=== PATIENT | female | born 1940 | race Caucasian/White ===

== ENCOUNTER 2017-10-22 10:49 | Emergency (ER) | payer MEDICARE, OTHER, SELFPAY ==
[2017-10-22 10:56] VITALS: BP 160/62; PULSE 69; RESP 15; TEMP 36.9; O2SAT 97; BMI 20.2
--- NOTE | 2017-10-22 11:26 | ED.ANXIETY ---
HPI - Anxiety General Chief Complaint: Anxiety Stated Complaint: States possible blood clot, hardened vein Time Seen by Provider: 10/22/17 11:25 Source: patient Mode of arrival: ambulatory Limitations: no limitations History of Present Illness HPI narrative: Patient presents to the emergency department with a chief complaint of a firm, hard, painful bump on her right anterior chest that she is convinced is a blood clot. She denies any chest pain, shortness of breath nor dizziness or lightheadedness. She denies near syncope. She denies recent travel or history of clots. She states that was not there yesterday. She denies any injury MD complaint: anxiety Onset (ago): day(s) Severity: mild Related Data Home Medications Medication Instructions Recorded Confirmed tramadol 50 mg PO Q6HP PRN 10/22/17 10/22/17 Previous Rx's Medication Instructions Recorded amitriptyline 50 mg PO Q DAY #90 tab 02/16/17 atenolol 50 mg PO QDAY #90 tab 02/16/17 atorvastatin [Lipitor] 40 mg PO HS #90 tab 02/16/17 Allergies Allergy/AdvReac Type Severity Reaction Status Date / Time alendronate sodium Allergy Unknown GI upset Verified 10/22/17 10:56 [From FOSAMAX] metoprolol [METOPROLOL] Allergy Unknown Verified 10/22/17 10:56 propranolol [PROPRANOLOL] Allergy Unknown Verified 10/22/17 10:56 Review of Systems Review of Systems All systems reviewed & are unremarkable except as noted in HPI and below Constitutional Denies chills, Denies fever(s), Denies lethargy and Denies weakness ENT Ears, Nose, Mouth, and Throat: Denies change in voice, Denies neck pain and Denies sore throat Cardiovascular Denies dyspnea and Denies dyspnea on exertion Respiratory Denies cough, Denies dyspnea, Denies dyspnea on exertion and Denies wheezing Gastrointestinal Gastrointestinal: Denies abdominal pain, Denies change in bowel habits, Denies diarrhea, Denies nausea and Denies vomiting Genitourinary Denies hematuria, Denies flank pain, Denies urinary incontinence and Denies urinary urgency Musculoskeletal Denies neck pain Integumentary/Breasts Reports new lesions and Reports skin pain Neurologic Denies weakness Allergic/Immunologic Denies wheezing PFSH Social History Smoking Status: Never smoker Exam Const General: cooperative and well developed Nutritional Appearance: well nourished Orientation: alert, awake, oriented x3 and not confused Chest Other: very small firm ropelike lesion on anterior chest overlying clavicle. No erythema or warmth, no abscess or cellulitis. Perhaps early thrombophlebitis Resp Effort & Inspection: normal respiratory effort, able to speak in complete sentences, no respiratory distress and no use of accessory muscles Auscultation: clear to auscultation bilaterally, no rales, no rhonchi and no wheezes Cardio Rate: regular rate Rhythm: regular rhythm Heart Sounds: no click, no gallops, no murmurs and no rubs Pulses: normal peripheral pulses GI Inspection: non-distended Palpation: soft, no hepatosplenomegaly, No guarding, No pulsatile mass and No tender Auscultation: normal bowel sounds Skin General: no rashes or lesions noted, No jaundice and No petechiae Course Last Vital Signs Temp 98.5 F 10/22/17 10:56 Pulse 69 10/22/17 10:56 Resp 16 10/22/17 11:50 BP 141/61 H 10/22/17 11:50 Pulse Ox 97 10/22/17 11:50 Discharge Plan Departure Patient Disposition: Home, Self-Care Clinical Impression: Thrombophlebitis Discharge Date/Time: 10/22/17 11:52 Interventions: ED Discharge Assessment Last Done: 10/22/17 11:51 Instructions: DI for Superficial Thrombophlebitis Activity Restrictions/Additional Instructions: apply a warm compress to your chest over the weekend Call Dr. Hunter's office on Tuesday morning for follow up next week, make sure they know you were in the ER today Return if worse Prescriptions: No Action atorvastatin [Lipitor] 40 MG tablet 40 mg PO HS Qty: 90 RF: 3 amitriptyline 50 MG tablet 50 mg PO Q DAY Qty: 90 RF: 3 atenolol 50 MG tablet 50 mg PO QDAY Qty: 90 RF: 3 tramadol 50 MG tablet 50 mg PO Q6HP PRN (Reason: Pain (Scale Score 7-10)) RF: 0 Referrals: Vasiliy Hunter MD [Primary Care Provider] -
[2017-10-22 11:50] VITALS: BP 141/61; RESP 16; O2SAT 97
== END 2017-10-22 11:52 | disposition home or self-care (01) ==
PROVIDERS: Emergency Provider Emergency Medicine; Family Provider Family Medicine; PCP Family Medicine
DX: I80.9 Phlebitis and thrombophlebitis of unspecified site (principal)
CPT/HCPCS: 99282

== ENCOUNTER → 2018-02-14 10:42 | Outpatient (CLI) | payer MEDICARE, OTHER, SELFPAY ==
[2018-02-14 11:48] LABS: Alanine Aminotransferase 27 IU/L (9-52); Albumin 4.2 g/dL (3.5-5.0); Albumin Globulin Ratio 1.4 (1.0-2.8); Alkaline Phosphatase 68 U/L (38-126); Aspartate Aminotransferase 30 IU/L (14-36); BUN Creatinine Ratio 21.4 (6-22); Bilirubin Total 0.5 mg/dL (0.2-1.3); Blood Urea Nitrogen 15 mg/dL (7-17); Calcium 9.5 mg/dL (8.4-10.2); Carbon Dioxide 34 mmol/L (22-32); Chloride 101 mmol/L (98-107); Cholesterol 246 mg/dL (140-199); Estimated Glomerular Filt Rate > 60.0 mL/min (>60); Globulin 2.9 g/dL (1.7-4.1); Glucose 98 mg/dL (80-110); HDL Cholesterol 39 mg/dL (40-60); HEMOLYSIS < 15 (0-50); LDL Cholesterol Calculated 164 mg/dL (<100); Potassium 4.5 mmol/L (3.4-5.1); Sodium 144 mmol/L (137-145); Total Protein 7.1 g/dL (6.3-8.2); Triglycerides 214 mg/dL (35-150)
== END ==
PROVIDERS: Family Provider Family Medicine; PCP Family Medicine; Visit Provider Family Medicine
DX: E78.00 Pure hypercholesterolemia, unspecified (principal)
CPT/HCPCS: 36415; 80053; 80061

== ENCOUNTER 2018-07-28 16:23 | Emergency (ER) | payer MEDICARE, OTHER, SELFPAY ==
[2018-07-28 16:44] VITALS: BP 182/61; PULSE 77; RESP 18; TEMP 36.4; O2SAT 99; BMI 20.5
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
--- NOTE | 2018-07-28 17:15 | PC.NURSE ---
pt c/o increasing high bp. otherwise pt denies symptoms.
== END 2018-07-28 17:17 | disposition home or self-care (01) ==
PROVIDERS: Emergency Provider Internal Medicine; PCP Student in an Organized Health Care Education/Training Program
DX: I10 Essential (primary) hypertension (principal)
CPT/HCPCS: 99282

== ENCOUNTER → 2019-01-02 08:13 | Outpatient (CLI) | payer MEDICARE, OTHER, SELFPAY ==
[2019-01-02 09:12] LABS: Hematocrit 39.2 % (36-46); Hemoglobin 13.3 g/dL (12.0-16.0); Mean Corpuscular HGB Conc 33.9 % (30-36); Mean Corpuscular Hemoglobin 29.1 PG (26-34); Platelet Count 348 X10^3/uL (150-400); Red Blood Cell Count 4.56 X10^6/uL (4.0-5.2); Red Cell Distribution Width 12.7 % (11.6-14.8)
[2019-01-02 09:31] LABS: BUN Creatinine Ratio 18.6 (6-22); Blood Urea Nitrogen 13 mg/dL (7-17); Calcium 9.6 mg/dL (8.4-10.2); Carbon Dioxide 31 mmol/L (22-32); Chloride 102 mmol/L (98-107); Estimated Glomerular Filt Rate > 60.0 mL/min (>60); Glucose 106 mg/dL (80-110); HEMOLYSIS < 15 (0-50); Potassium 4.1 mmol/L (3.4-5.1); Sodium 141 mmol/L (137-145)
== END ==
PROVIDERS: PCP Student in an Organized Health Care Education/Training Program; Visit Provider Student in an Organized Health Care Education/Training Program
DX: I10 Essential (primary) hypertension (principal); R63.4 Abnormal weight loss
CPT/HCPCS: 36415; 80048; 85027

== ENCOUNTER → 2019-01-11 07:27 | Outpatient (CLI) | payer MEDICARE, OTHER, SELFPAY ==
[2019-01-11 08:46] LABS: Cholesterol 186 mg/dL (140-199); HDL Cholesterol 38 mg/dL (40-60); LDL Cholesterol Calculated 91 mg/dL (<100); Triglycerides 283 mg/dL (35-150)
== END ==
PROVIDERS: PCP Student in an Organized Health Care Education/Training Program; Visit Provider Student in an Organized Health Care Education/Training Program
DX: E78.00 Pure hypercholesterolemia, unspecified (principal)
CPT/HCPCS: 36415; 80061

== ENCOUNTER → 2019-12-12 13:40 | Outpatient (CLI) | payer MEDICARE, OTHER, SELFPAY ==
[2019-12-12 14:44] LABS: BUN Creatinine Ratio 20.3 (6-22); Blood Urea Nitrogen 14 mg/dL (7-17); Carbon Dioxide 30 mmol/L (22-32); Chloride 103 mmol/L (98-107); Estimated Glomerular Filt Rate > 60.0 mL/min (>60); Glucose 85 mg/dL (80-110); HEMOLYSIS < 15 (0-50); Potassium 4.5 mmol/L (3.4-5.1); Sodium 139 mmol/L (137-145)
== END ==
PROVIDERS: PCP Student in an Organized Health Care Education/Training Program; Referring Provider Student in an Organized Health Care Education/Training Program; Visit Provider Student in an Organized Health Care Education/Training Program
DX: I10 Essential (primary) hypertension (principal)
CPT/HCPCS: 36415; 80048

== ENCOUNTER → 2019-12-18 13:50 | Outpatient (CLI) | payer MEDICARE, OTHER, SELFPAY ==
[2019-12-19 20:35] LABS: COVID19 Sendout Not Detected (Not Detect)
== END ==
PROVIDERS: PCP Student in an Organized Health Care Education/Training Program; Visit Provider Physician Assistant
DX: Z01.812 Encounter for preprocedural laboratory examination (principal)
CPT/HCPCS: 87635

== ENCOUNTER → 2019-12-18 14:28 | Outpatient (CLI) | payer MEDICARE, OTHER, SELFPAY | PROVIDERS: PCP Student in an Organized Health Care Education/Training Program; Referring Provider Student in an Organized Health Care Education/Training Program; Visit Provider Student in an Organized Health Care Education/Training Program | DX: M81.0 Age-related osteoporosis without current pathological fracture (principal); Z78.0 Asymptomatic menopausal state; Z87.891 Personal history of nicotine dependence | CPT/HCPCS: 77080 ==

== ENCOUNTER 2019-12-21 09:35 | Day surgery (SDC) | payer MEDICARE, OTHER, SELFPAY ==
[2019-12-18 11:36] VITALS: BMI 19.5
[2019-12-21] VITALS (9 sets, daily range): BP systolic 137–164; BP diastolic 59–73; PULSE 58–69; RESP 11–16; TEMP 36.4–36.7; O2SAT 97–99; BMI 19.5
--- NOTE | 2019-12-21 10:09 | PM.PREOP ---
Pre-operative Note COVID-19 COVID-19 status: Negative Result date/Date tested (Pos, Neg/Pending): 12/18/19 Interval Note History & Physical reviewed/Exam performed by Physician: Yes Changes to H&P: No
[2019-12-21] MEDS: LACTATED RINGERS 1,000 ML 42 ML IV (10:16)
[2019-12-21] MEDS: HYDROCODONE/ACET 5/325 TABLET 1 TAB PO ×2 (10:34→13:05)
[2019-12-21] MEDS: CEFAZOLIN 2 GM/100 ML FROZ.PIGGY IV (11:30)
--- NOTE | 2019-12-21 11:54 | SUR.OPER ---
Supine on padded OR bed, head on pillow, arms secured on padded arm boards at <90 degrees abduction, legs uncrossed, safety belt at thigh, tape over blanket over lower legs.
[2019-12-21] MEDS: BUPIVACAINE 0.25% W/ EPI 30 ML VIAL INJ (12:02)
--- NOTE | 2019-12-21 12:55 | SUR.PHASEI ---
Report given to Whit
[2019-12-21] MEDS: fentaNYL 100 MCG/2 ML INJ IV (13:03)
--- NOTE | 2019-12-21 13:34 | SUR.PHASEII ---
Assumed care from ITZ Sherman. Pt wanting to go home dressing to R lower foot remains c/d/i.
--- NOTE | 2019-12-21 13:50 | P.OP_ITS ---
Operative Date/Time/Diagnoses Date of procedure: 12/21/19 Time of procedure: 11:00 Pre-op diagnosis: Right 2nd hammertoe, right great toenail deformity Post-op diagnosis: same Procedure & Clinicians Procedure: 1. Correction hammertoe right CPT code 37742-L9 2. 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 She has failed conservative treatment and has persistent pain and dysfunction from her rigid hammertoe and pain from her toe rim minute. She did have a previous condyle resection and great toenail removal with other providers. She is very active an d likes to walk up to 12 miles a week and this has limited her shoe choices and discuss continued pain. The risks and benefits of the procedure have been discussed with the patient even opportunity to ask questions. The risks of surgery include but are not limited to infection, malunion, nonunion, persistence of pain, damage to nerves and blood vessels, posttraumatic arthritis, DVT, PE, cardiopulmonary complications and . The patient expressed a thorough understanding of the risks and benefits of surgery and has elected to proceed. Consent was signed. Surgeon: Kiara Mortensen Click Yes if Unassisted: Yes Anesthesia Type: General and Local Operative Notes Findings: Medial great toe nail remain it no signs of infection. This was elevated removed and the germinal and sterile matrix were scraped and curetted. Right 2nd toe rigid hammertoe deformity previous longitudinal incision was reopened proximal phalanx was resected toe was realigned and fixed in place with 2x045 K-wires Closure Type: primary Specimen(s): none sent Estimated Blood Loss (mL): 5 Blood products transfused: none Tourniquet time (min): 26 Procedure in detail: Patient was seen the preoperative area the surgery site was marked and informed consent confirmed. She was brought to the operating of the anesthesia team placed supine on the operative table all bony problems well padded. SCD was placed on the contralateral leg. General anesthetic was administered. The right lower extremities prepped and draped in the standard sterile fashion. A well-padded thigh tourniquet was placed. Formal time-out procedure was performed confirming the patient's side and site of surgery administration of appropriate preoperative antibiotics. All were in agreement. Attention was turned to the right great toe and 2nd toe approximately 4 cc of 0.25% Marcaine with epinephrine were injected for a digital blocks. Attention was then turned to the great toe the medial nail remnant was present this was thickened and angular. [place] elevator was used under and to loosen this and then it was removed with a rongeur. The germinal and sterile matrix were then curetted and scraped with a 15 blade and irrigated. Attention then turned to the 2nd toe for the hammertoe correction. The previous longitudinal incision was reopened over the PIP joint. The distal end of the proximal phalanx was a exposed and released. The TTS saw was used to resect the proximal phalanx and a curette was used to repair the middle phalanx distal and. The toe was aligned and a K-wire was placed. The 2nd 045 K-wire was then used to add a rotational control. Alignment was checked under mini C- arm fluoroscopy. This was appropriate. The toe was clinically straight. There was no noted contracture at the MTP joint. The wound was irrigated tourniquet was released incision was closed with 4 0 Monocryl and 4 0 nylon suture. Sterile dressing was placed. Patient was awoken from the anesthesia and taken the PACU in good condition. Was noted at the end the procedure the toes had pinked up appropriately. Complications: none Post-operative Condition: stable Disposition: PACU Plan for aftercare: Weightbear as tolerated in postop shoe flat foot or heel weight-bearing. Keep dressings clean dry and intact. Will use her home tramadol for pain. K-wires will stay in place 4-6 weeks
== END 2019-12-21 13:34 | disposition home or self-care (01) ==
PROVIDERS: PCP Student in an Organized Health Care Education/Training Program; Referring Provider Orthopaedic Surgery Foot and Ankle Surgery; Visit Provider Orthopaedic Surgery Foot and Ankle Surgery
PROC: (CPT 28285; principal; 2019-12-21 11:15)
DX: M20.41 Other hammer toe(s) (acquired), right foot (principal); L60.8 Other nail disorders; I10 Essential (primary) hypertension; E78.5 Hyperlipidemia, unspecified; M25.774 Osteophyte, right foot
CPT/HCPCS: 28285; 11750; J0690; J2704; J3010

== ENCOUNTER 2020-03-14 17:42 | Emergency (ER) | payer MEDICARE, OTHER, SELFPAY ==
[2020-03-14 17:50] VITALS: BP 185/83; PULSE 65; RESP 16; TEMP 36; O2SAT 98; BMI 20.4
--- NOTE | 2020-03-14 18:01 | DI.RAD.S_ITS ---
PROCEDURE: XR FINGER RT MIN 2V INDICATIONS: pain,worried her finger is dislocated TECHNIQUE: AP hand, 2 views of the right finger(s) acquired. COMPARISON: None. FINDINGS: Bones: No fracture. Severe diffuse osteoarthritis. Anatomic alignment is present. Distal radioulnar joint degeneration. Soft tissues: No suspicious soft tissue calcifications. IMPRESSION: No dislocation identified Diffuse osteoarthritis Dictated by: Brian Monique M.D. on 03/14/2020 at 18:38 Approved by: Brian Monique M.D. on 03/14/2020 at 18:39
[2020-03-14 19:19] VITALS: BP 205/93; PULSE 63; RESP 16; O2SAT 99
--- NOTE | 2020-03-14 19:44 | ED_ITS ---
HPI - Extremity Injury (Lower) <SULEMAN Redmond-BC - Last Filed: 03/14/20 20:01> General Chief Complaint: Extremity Injury, Lower Stated Complaint: right hand index finger bent to the side Time Seen by Provider: 03/14/20 19:00 Source: patient Mode of arrival: Ambulatory Limitations: no limitations History of Present Illness HPI Narrative: The patient is a 79-year-old female nonsmoker with history of arthritis who presents with a chief complaint of injury to her right index finger. She states that she was doing sudhakar and felt a pop and pain at the base of her right index finger. The patient is concerned that her finger is dislocated. She has not taken anything for pain or applied ice. This happened just prior to arrival. Related Data Previous Rx's Medication Instructions Recorded amitriptyline 50 mg tablet 50 mg PO QPM #90 tab 03/27/19 lisinopril 20 mg tablet 20 mg PO DAILY #90 tab 05/03/19 atenolol 50 mg tablet 50 mg PO BID #180 tab 07/04/19 atorvastatin 40 mg tablet 40 mg PO BEDTIME #90 tab 07/04/19 tramadol 50 mg tablet 50 mg PO Q6HP PRN #60 tab 12/12/19 Prolia 60 mg SUBCUT [id number] #1 dose 02/13/20 denosumab 60 mg/mL subcutaneous 60 mg SUBCUT [id number] #1 ml 02/13/20 syringe Allergies Allergy/AdvReac Type Severity Reaction Status Date / Time alendronate sodium Allergy Unknown GI upset Verified 03/14/20 17:54 [From FOSAMAX] metoprolol [METOPROLOL] Allergy Unknown Verified 03/14/20 17:54 propranolol [PROPRANOLOL] Allergy Unknown Verified 03/14/20 17:54 Review of Systems <SULEMAN Redmond-BC - Last Filed: 03/14/20 20:01> Review of Systems Narrative: GENERAL: Denies chills, fatigue, malaise, fever, sweats. HEENT: Denies sinus pain, ear pain, sore throat, difficulty swallowing, dizziness. RESPIRATORY: Denies dyspnea, cough, wheezing, hemoptysis, sputum. CARDIOVASCULAR: Denies chest pain, palpitations, orthopnea, edema, GASTROINTESTINAL: Denies nausea, vomiting, abdominal pain, diarrhea, constipation, melena. : Denies dysuria, frequency, incontinence, hematuria, urinary retention. MUSCULOSKELETAL: See HPI SKIN: Denies rash, skin lesions, or other NEUROLOGIC: Denies weakness, headache, numbness, change in speech, confusion, seizures, incoordination. PSYCHIATRIC: No concerning psychosocial issues. 12 point review of systems is negative except for those stated above Patient History <JAGUAR Redmond - Last Filed: 03/14/20 20:01> Medical History Chronic low back pain (Chronic) Coronary artery disease (Chronic) Essential hypertension (Chronic 12/22/15) Hair loss (Chronic) Hyperlipemia (Chronic) Hypertension (Chronic) Insomnia (Chronic) Low back pain (Chronic 12/22/15) Osteopenia (Chronic) Osteoporosis (Chronic 02/04/15) Osteoporosis (Chronic) Palpitations (Chronic) Paroxysmal supraventricular tachycardia (Chronic) Pure hypercholesterolemia (Chronic 12/22/15) Surgical History History of colon surgery (Resolved) Hx of cholecystectomy (Resolved) Hx of hysterectomy (Resolved 1972) Family History Father No problems noted. Mother No problems noted. Social History household members: significant other Smoking Status: Never smoker alcohol intake: current Smoking Status: Never smoker alcohol intake frequency: holidays/special occasions only Substance Use Type: does not use Exam <JAGUAR Redmond - Last Filed: 03/14/20 20:01> Narrative Exam Narrative: GENERAL: This is a well-nourished, well-developed patient, in no acute distress HEAD: Atraumatic. Normocephalic. No temporal or scalp tenderness. EYES: Pupils equal round and reactive. Extraocular motions intact. No scleral icterus. No injection or drainage. ENT: Nose without bleeding, purulent drainage or septal hematoma. Wearing a mask e. Airway patent. CARDIOVASCULAR: Regular rate and rhythm RESPIRATORY: No cough. No increased respiratory effort. No accessory muscle use. Speaking full sentences. EXTREMITIES: Slight pain to palpation right index finger. Able to flex and extend fully against resistance. Able to make a fist, acute fingers apart under pressure, cap refill less than 2 seconds all fingers hand. Positive right radial pulse. Arthritis noted bilateral hands NEURO: AOx3. Interactive. SKIN: No rash or erythema. Initial Vital Signs Initial Vital Signs: Vital Signs Temperature 96.8 F L 03/14/20 17:50 Pulse Rate 65 03/14/20 17:50 Respiratory Rate 16 03/14/20 17:50 Blood Pressure 185/83 H 03/14/20 17:50 Pulse Oximetry 98 03/14/20 17:50 <Rodger German DO - Last Filed: 03/15/20 05:32> Initial Vital Signs Initial Vital Signs: Vital Signs Temperature 96.8 F L 03/14/20 17:50 Pulse Rate 65 03/14/20 17:50 Respiratory Rate 16 03/14/20 17:50 Blood Pressure 185/83 H 03/14/20 17:50 Pulse Oximetry 98 03/14/20 17:50 Scores <JAGUAR Redmond - Last Filed: 03/14/20 20:01> GCS [place] coma scale eye opening: Spontaneous [place] coma scale verbal response: Orientated [place] coma scale motor response: Obey commands [place] coma scale total score: 15 Course <JAGUAR Redmond - Last Filed: 03/14/20 20:01> Orders Ordered: Discontinued Medications Acetaminophen (Tylenol) 650 mg PO NOW ONE Stop: 03/14/20 19:06 Last Admin: 03/14/20 19:10 Dose: Not Given Documented by: JAKOB Ibuprofen (Advil) 400 mg PO NOW ONE Stop: 03/14/20 19:06 Last Admin: 03/14/20 19:10 Dose: Not Given Documented by: JAKOB Vital Signs Vital signs: Vital Signs - 8 hr 03/14/20 17:50 03/14/20 19:19 Temperature 96.8 F L Pulse Rate 65 63 Respiratory Rate 16 16 Blood Pressure 185/83 H 205/93 H Pulse Oximetry 98 99 <Rodger German DO - Last Filed: 03/15/20 05:32> Orders Ordered: Discontinued Medications Acetaminophen (Tylenol) 650 mg PO NOW ONE Stop: 03/14/20 19:06 Last Admin: 03/14/20 19:10 Dose: Not Given Documented by: JAKOB Ibuprofen (Advil) 400 mg PO NOW ONE Stop: 03/14/20 19:06 Last Admin: 03/14/20 19:10 Dose: Not Given Documented by: JAKOB Vital Signs Vital signs: Vital Signs - 8 hr 03/14/20 17:50 03/14/20 19:19 Temperature 96.8 F L Pulse Rate 65 63 Respiratory Rate 16 16 Blood Pressure 185/83 H 205/93 H Pulse Oximetry 98 99 MDM - Extremity Injury (Lower) <YOSEF RedmondBC - Last Filed: 03/14/20 20:01> Imaging Data Extremity x-ray #1: Radiologist's Impression: [facility] [address] [place] [id number] XRay Report Signed Patient: Joanne Turner [facility]#: [id number] : 2Acct:[id number] Age/Sex: 79 / FDate of Service: 03/14/20 Loc: ED Accession Number: [id number] Procedure: XR finger RT min 2V Ordering Provider: Andressa Navarro MD PROCEDURE: XR FINGER RT MIN 2V INDICATIONS: pain,worried her finger is dislocated TECHNIQUE: AP hand, 2 views of the right finger(s) acquired. COMPARISON: None. FINDINGS: Bones: No fracture. Severe diffuse osteoarthritis. Anatomic alignment is present. Distal radioulnar joint degeneration. Soft tissues: No suspicious soft tissue calcifications. IMPRESSION: No dislocation identified Diffuse osteoarthritis Dictated by: Brian Monique M.D. on 03/14/2020 at 18:38 Approved by: Brian Monique M.D. on 03/14/2020 at 18:39 [facility] Narrative Medical decision making narrative: The patient is a 79-year-old female who presents with a chief complaint of right index finger pain. She believes her right index finger to be dislocated, however her negative x-ray, neurovascular integrity and full range of motion is very reassuring. Reassurance provided. Encouraged [id number] medications as needed and able as well as rest ice compression elevation. Encouraged follow-up with primary care provider in the next few days and coming back to ER for acute concerns. Patient has no questions or concerns upon discharge and states understanding return precautions as well as follow-up care. Discharge Plan Departure Patient Disposition: Home Clinical Impression: Finger sprain Qualifiers: Encounter type: initial encounter Finger: index finger Sprain of finger site: unspecified site Laterality: right Qualified Code(s): S63.610A - Unspecified sprain of right index finger, initial encounter Discharge Date/Time: 03/14/20 19:40 Instructions: DI for Finger Sprain, How To Perform RICE (Rest, Ice, Compress, Elevate) Activity Restrictions/Additional Instructions: As I discussed, your x-ray shows no acute fracture. This does not rule out a soft tissue injury such as a ligament or tendon injury. It is important that you follow up with primary care provider, especially if worsening or no improvement. There can be fractures that did not show up on initial x-ray. Please use rest ice compression elevation as well as [id number] pain medications as needed and able. Please come back to emergency department for any acute concerns. Prescriptions: No Action amitriptyline 50 mg tablet 50 mg PO QPM Qty: 90 RF: 3 lisinopril 20 mg tablet 20 mg PO DAILY Qty: 90 RF: 3 atorvastatin [Lipitor] 40 mg tablet 40 mg PO BEDTIME Qty: 90 RF: 3 atenolol 50 mg tablet 50 mg PO BID Qty: 180 RF: 3 Prolia 60 mg SUBCUT [id number] Qty: 1 RF: 0 Prolia 60 mg/mL syringe 60 mg SUBCUT [id number] Qty: 1 RF: 0 tramadol 50 mg tablet 50 mg PO Q6HP PRN (Reason: Pain) Qty: 60 RF: 5 Referrals: Rashawn Beckman MD [Primary Care Provider] - <Rodger German DO - Last Filed: 03/15/20 05:32> [facility]: I was immediately available in the department for consultation. This documentation has been reviewed and I agree with assessment and plan. Supervised by Rodger German DO
== END 2020-03-14 19:40 | disposition home or self-care (01) ==
PROVIDERS: Emergency Provider Nurse Practitioner Family; PCP Student in an Organized Health Care Education/Training Program
DX: S63.610A Unspecified sprain of right index finger, initial encounter (principal); Y93.D1 Activity, knitting and crocheting
CPT/HCPCS: 73140; 99281; 99283

== ENCOUNTER 2020-09-30 17:09 | Emergency (ER) | payer MEDICARE, OTHER, SELFPAY ==
[2020-09-30 17:15] VITALS: BP 133/63; PULSE 61; RESP 16; TEMP 36.8; O2SAT 97; BMI 20.7
--- NOTE | 2020-09-30 18:17 | ED_ITS ---
HPI - General Adult General Chief complaint: Abdominal Pain Stated complaint: THROWING UP ACHES AND PAINS Time Seen by Provider: 09/30/20 18:03 Source: patient Mode of arrival: Wheelchair Limitations: no limitations History of Present Illness HPI narrative: Patient is a 80-year-old female who is here for evaluation of less than 24 hours of nausea and vomiting and abdominal pain. Triage note stated that she was also complaining of diarrhea however she told me she was not having diarrhea today. No recent antibiotics. No recent travel. She thinks that she potentially has food poisoning. She describes the pain in her upper abdomen. She has had her gallbladder removed and has had a bowel resection in the past. She also expresses generalized as body aches. Related Data Previous Rx's Medication Instructions Recorded amitriptyline 50 mg tablet 50 mg PO QPM #90 tab 03/31/20 lisinopril 20 mg tablet 20 mg PO DAILY #90 tab 06/02/20 atorvastatin 40 mg tablet 40 mg PO BEDTIME #90 tab 06/16/20 atenolol 50 mg tablet 50 mg PO BID #180 tab 08/15/20 tramadol 50 mg tablet 50 mg PO Q6HP PRN #60 tab 08/21/20 Allergies Allergy/AdvReac Type Severity Reaction Status Date / Time alendronate sodium Allergy Unknown GI upset Verified 09/30/20 17:19 [From FOSAMAX] metoprolol [METOPROLOL] Allergy Unknown Verified 09/30/20 17:19 propranolol [PROPRANOLOL] Allergy Unknown Verified 09/30/20 17:19 Review of Systems Constitutional Constitutional: Reports chills, Reports fatigue, Denies fever(s), Denies headache(s), Reports lethargy and Reports malaise ENT Ears, Nose, Mouth, and Throat: Denies headache(s) Cardiovascular Cardiovascular: Denies chest pain and Denies dyspnea Respiratory Respiratory: Denies dyspnea Gastrointestinal Gastrointestinal: Reports abdominal pain, Denies change in bowel habits, Reports nausea and Reports vomiting Genitourinary Genitourinary: Denies dysuria Genitourinary: Denies dysuria Musculoskeletal Musculoskeletal: Denies arthralgias and Reports myalgias Integumentary/Breasts Skin/Breast: Denies lesions and Denies rash Neurologic Neurologic: Denies behavioral changes and Denies headache(s) Psychiatric Psychiatric: Denies behavioral changes Endocrine Endocrine: Reports fatigue Hematologic/Lymphatic On Anticoagulants: No Allergic/Immunologic Allergic/Immunologic: Denies urticaria Patient History Medical History Chronic low back pain Coronary artery disease Essential hypertension (12/22/15) Hair loss Hyperlipemia Hypertension Insomnia Low back pain (12/22/15) Osteopenia Osteoporosis (02/04/15) Palpitations Paroxysmal supraventricular tachycardia Pure hypercholesterolemia (12/22/15) Surgical History (Updated 07/23/20 @ 13:17 by Rashawn Beckman MD) History of colon surgery Hx of cholecystectomy Hx of hysterectomy (1972) Family History Father No problems noted. Mother No problems noted. Social History household members: significant other Smoking Status: Never smoker alcohol intake: current Smoking Status: Never smoker alcohol intake frequency: holidays/special occasions only Substance Use Type: does not use Exam Initial Vital Signs Initial Vital Signs: Vital Signs Temperature 98.2 F 09/30/20 17:15 Pulse Rate 61 09/30/20 17:15 Respiratory Rate 16 09/30/20 17:15 Blood Pressure 133/63 09/30/20 17:15 Pulse Oximetry 97 09/30/20 17:15 Const General: cooperative Limitations: mental status not altered HENMT Head: normal to inspection and normocephalic Eyes General: appearance normal, both eyes and all related structures Resp Effort & Inspection: normal respiratory effort Auscultation: clear to auscultation bilaterally Cardio Rate: regular rate Rhythm: regular rhythm GI Inspection: non-distended Palpation: soft, No firm, No guarding and tender Back/Spine/Pelvis Back: No CVA tenderness Skin Lesions: no lesions Rashes: no rashes Neuro General: patient alert and patient awake Cognition: normal cognition Speech: speech normal Extrem General: normal to inspection and capillary refill normal Psych Appearance: grossly normal and well kempt Course Orders Ordered: ED Orders 09/30/20 17:21 EKG-12 Lead Stat 09/30/20 18:18 CT abdomen pelvis w con Stat 09/30/20 18:24 Complete Blood Count AUTO DIFF Stat Comprehensive Metabolic Panel Stat Lipase Stat Partial Thromboplastin Time Stat Prothrombin Time INR Stat Discontinued Medications Sodium Chloride (Normal Saline 0.9%) 1,000 mls @ 1,000 mls/hr IV BOLUS ONE Stop: 09/30/20 19:16 Last Infusion: 09/30/20 20:53 Dose: 0 mls/hr Documented by: Admin: 09/30/20 18:32 Dose: 1,000 mls/hr Documented by: PEARL Morphine Sulfate (Morphine 4 Mg/Ml Inj) 4 mg IV NOW ONE Stop: 09/30/20 18:18 Last Admin: 09/30/20 18:32 Dose: 4 mg Documented by: PEARL Ondansetron HCl (Ondansetron 4 Mg/2 Ml Inj) 4 mg IV NOW ONE Stop: 09/30/20 18:18 Last Admin: 09/30/20 18:32 Dose: 4 mg Documented by: PEARL Ondansetron HCl (Ondansetron 4 Mg/2 Ml Inj) 4 mg IV NOW ONE Stop: 09/30/20 19:20 Last Admin: 09/30/20 19:25 Dose: 4 mg Documented by: RHIANNON Ondansetron HCl (Ondansetron 4 Mg Odt Prepack) 1 bottle MISC SEEINSTR ONE Stop: 09/30/20 20:40 Last Admin: 09/30/20 20:53 Dose: 1 bottle Documented by: PEARL Vital Signs Vital signs: Vital Signs - 8 hr 09/30/20 17:15 09/30/20 21:10 Temperature 98.2 F Pulse Rate 61 78 Respiratory Rate 16 20 Blood Pressure 133/63 178/87 H Pulse Oximetry 97 98 Medical Decision Making Lab Data Lab results reviewed: Yes I reviewed the patient's lab results. Result diagrams: 09/30/20 18:24 09/30/20 18:24 Labs: Lab Results 09/30/20 09/30/20 09/30/20 Range/Units 18:24 18:24 18:24 WBC 15.0 H (4.5-11.0) X10^3/uL RBC 4.24 (4.0-5.2) X10^6/uL Hgb 12.3 (12.0-16.0) g/dL Hct 36.8 (36-46) % MCV 86.8 (80-100) fL MCH 29.1 (26-34) PG MCHC 33.5 (30-36) % RDW 12.5 (11.6-14.8) % Plt Count 302 (150-400) X10^3/uL Neut % (Auto) 91.4 H (50-75) % Lymph % (Auto) 3.9 L (25-40) % Stephens % (Auto) 4.5 (3-14) % Eos % (Auto) 0.0 L (2-4) % Baso % (Auto) 0.2 (0-2) % Neut # (Auto) 02579 H (6655-1980) /uL Lymph # (Auto) 600 L (6196-3083) /uL Stephens # (Auto) 700 (0-900) /uL Eos # (Auto) 0 (0-450) /uL Baso # (Auto) 0 (0-100) /uL PT 12.1 (10.1-12.7) SECONDS INR 1.1 (0.9-1.3) APTT 26 L (26.4-36.2) SECONDS Sodium 136 L (137-145) mmol/L Potassium 3.9 (3.4-5.1) mmol/L Chloride 101 (98-107) mmol/L Carbon Dioxide 27 (22-32) mmol/L BUN 16 (7-17) mg/dL Creatinine 0.53 (0.52-1.04) mg/dL Estimated GFR > 60.0 (>60) mL/min BUN/Creatinine Ratio 30.2 H (6-22) Glucose 120 H (80-110) mg/dL Calcium 9.4 (8.4-10.2) mg/dL Total Bilirubin 0.8 (0.2-1.3) mg/dL AST 45 H (14-36) IU/L ALT 22 (<35) IU/L Alkaline Phosphatase 71 (38-126) U/L Total Protein 7.1 (6.3-8.2) g/dL Albumin 4.2 (3.5-5.0) g/dL Globulin 2.9 (1.7-4.1) g/dL Albumin/Globulin Ratio 1.4 (1.0-2.8) Lipase 46 (23-300) U/L Urine Dip Bedside Urine Glucose Negative Bedside Urine Bilirubin - Negative Bedside Urine Ketone - Negative Urine Specific [place] 1.020 Bedside Urine Occult Blood - Negative Bedside Urine pH 6.5 Bedside Urine Protein - Negative Bedside Urine Urobilinogen - Negative Bedside Urine Nitrite - Negative Bedside Urine Leukocytes - Negative Esterase Point of care testing: Urine Dip Bedside Urine Glucose Negative Bedside Urine Bilirubin - Negative Bedside Urine Ketone - Negative Urine Specific [place] 1.020 Bedside Urine Occult Blood - Negative Bedside Urine pH 6.5 Bedside Urine Protein - Negative Bedside Urine Urobilinogen - Negative Bedside Urine Nitrite - Negative Bedside Urine Leukocytes - Negative Esterase Imaging Data CT scan - abdomen/pelvis: Radiologist's Impression: [address] [id number] Scan ReportSigned Patient: Joanne Turner IMR#: [id number]: 1940cct:[id number]/Sex: 80 / FDate of Service: 09/30/20Loc: EDAccession Number: [id number] Procedure: CT abdomen pelvis w con Ordering Provider: Saman Marvin D.O. PROCEDURE: CT ABDOMEN PELVIS W CON INDICATIONS: A gastric abdominal pain TECHNIQUE: After the administration of intravenous contrast, 5 mm thick sections acquired from the diaphragm to the symphysis. 5 mm coronal and sagittal reformats were acquired. For radiation dose reduction, the following was used: automated exposure control, adjustment of mA and/or kV according to patient size. COMPARISON: None. FINDINGS: Image quality: Excellent. ABDOMEN: Lung bases: Lung bases are clear. Heart size is normal. Solid organs: Liver is normal in size. There is an ill-defined area of low attenuation within the posterior right hepatic lobe measuring approximately 9 mm on series 2, image 18 with peripheral enhancement. No priors are available for comparison. Gallbladder has been removed. Biliary system is non dilated. Common bile duct measures approximately 9 mm. Pancreas enhances normally. Spleen is normal in size and enhancement. No adrenal nodules. Kidneys demonstrate normal size and enhancement, without hydronephrosis. Peritoneum and bowel: Bowel loops demonstrate normal wall thickness and calibe r. No free fluid or air. Stomach is incompletely distended within overall thickened appearance. The appendix is not definitively identified. Nodes and vessels: No retroperitoneal or mesenteric adenopathy by size criteria. Subcentimeter scattered right lower quadrant lymph nodes are noted. Aorta and inferior vena cava are normal in size. Miscellaneous: No ventral hernias. Mild hiatal hernia. PELVIS: Genitourinary: Bladder wall thickness is normal. Miscellaneous: No inguinal hernias or adenopathy. Bones: No suspicious bony lesions. No vertebral body compression fractures. IMPRESSION: 1. Thickened appearance of the stomach which could be secondary to incomplete distention. Gastritis also cannot be definitively excluded. 2. Mild prominence of the common bile duct within acceptable limits for post cholecystectomy sequela. 3. Mild scattered subcentimeter right lower quadrant lymph nodes. Mesenteric adenitis cannot be excluded. 4. Peripherally enhancing low-attenuation of patent lesion suspicious for hemangioma. No priors are available for comparison. As clinically indicated, further evaluation with ultrasound may be obtained. Dictated by: Yovana Justin M.D. on 09/30/2020 at 20:03 Approved by: Yovana Justin M.D. on 09/30/2020 at 20:21 ECG Data Attestation: I personally reviewed and interpreted this ECG as follows: Prior ECG tracings: not available for review Interpretation: Sinus rhythm Ventricular rate is 69 Normal QRS Normal QTC Incomplete right bundle-branch block Nonspecific ST T wave changes MDM Narrative Medical decision making narrative: Patient does have a leukocytosis but has also been vomiting for the past [address] scan does show thickening of the stomach which given her situation could very well be related to gastritis. There is no signs of bowel obstructions. She stated that she has not had any diarrhea. Did not provide us a stool sample. Has had no recent travel no recent antibiotics. Her nausea was controlled with nausea medication here in the ER. Will send her home with a prescription for this. Has no indication for antibiotics currently. No indication for surgical consultation. No indication for admission to the hospital. Despite that she was given strict return precautions peer she expressed understanding and agreement. Discharge Plan Departure Patient Disposition: Home Clinical Impression: Gastritis, Abdominal pain, Nausea & vomiting Instructions: DI for Abdominal Pain-Adult, Nausea and Vomiting-Adult Activity Restrictions/Additional Instructions: Use the nausea medicine as needed. Be sure to drink small amounts of fluid over longer periods of time. Drinking fluids is more important than eating. When you are feeling well enough you can start introducing a bland diet. Contact your primary provider for follow-up. Return to the emergency department for any new or worsening symptoms Prescriptions: No Action amitriptyline 50 mg tablet 50 mg PO QPM Qty: 90 RF: 2 lisinopril 20 mg tablet 20 mg PO DAILY Qty: 90 RF: 2 atorvastatin [Lipitor] 40 mg tablet 40 mg PO BEDTIME Qty: 90 RF: 1 atenolol 50 mg tablet 50 mg PO BID Qty: 180 RF: 3 tramadol 50 mg tablet 50 mg PO Q6HP PRN (Reason: Pain) Qty: 60 RF: 4 Referrals: Rashawn Beckman MD [Primary Care Provider] -
[2020-09-30] MEDS: MORPHINE 4 MG/ML INJ IV (18:32)
[2020-09-30] MEDS: SODIUM CHLORIDE 0.9% 1,000 ML 1000 ML IV (18:32)
[2020-09-30] MEDS: ONDANSETRON 4 MG/2 ML INJ IV ×2 (18:32→19:25)
[2020-09-30 18:49] LABS: Add Manual Diff / Slide Review NO; Basophils Absolute Auto 0 /uL (0-100); Basophils Percent Auto 0.2 % (0-2); Eosinophils Absolute Auto 0 /uL (0-450); Hematocrit 36.8 % (36-46); Hemoglobin 12.3 g/dL (12.0-16.0); Lymphocytes Absolute Auto 600 /uL (1100-4500); Lymphocytes Percent Auto 3.9 % (25-40); Mean Corpuscular HGB Conc 33.5 % (30-36); Mean Corpuscular Hemoglobin 29.1 PG (26-34); Mean Corpuscular Volume 86.8 fL (80-100); Monocytes Absolute Auto 700 /uL (0-900); Monocytes Percent Auto 4.5 % (3-14); Neutrophils Absolute Auto 13700 /uL (1500-7000); Neutrophils Percent Auto 91.4 % (50-75); Platelet Count 302 X10^3/uL (150-400); Red Blood Cell Count 4.24 X10^6/uL (4.0-5.2); Red Cell Distribution Width 12.5 % (11.6-14.8)
[2020-09-30 19:11] LABS: INR 1.1 (0.9-1.3); Prothrombin Time 12.1 SECONDS (10.1-12.7)
[2020-09-30 19:14] LABS: PTT Partial Thromboplastin Tim 26 SECONDS (26.4-36.2)
[2020-09-30 19:30] LABS: Alanine Aminotransferase 22 IU/L (<35); Albumin 4.2 g/dL (3.5-5.0); Albumin Globulin Ratio 1.4 (1.0-2.8); Alkaline Phosphatase 71 U/L (38-126); Aspartate Aminotransferase 45 IU/L (14-36); BUN Creatinine Ratio 30.2 (6-22); Bilirubin Total 0.8 mg/dL (0.2-1.3); Blood Urea Nitrogen 16 mg/dL (7-17); Calcium 9.4 mg/dL (8.4-10.2); Carbon Dioxide 27 mmol/L (22-32); Chloride 101 mmol/L (98-107); Estimated Glomerular Filt Rate > 60.0 mL/min (>60); Globulin 2.9 g/dL (1.7-4.1); Glucose 120 mg/dL (80-110); HEMOLYSIS 37 (0-50); Lipase 46 U/L (23-300); Potassium 3.9 mmol/L (3.4-5.1); Sodium 136 mmol/L (137-145); Total Protein 7.1 g/dL (6.3-8.2)
[2020-09-30] MEDS: ONDANSETRON 4 MG ODT PREPACK 1 BOTTLE MISC (20:53)
[2020-09-30 21:10] VITALS: BP 178/87; PULSE 78; RESP 20; O2SAT 98
== END 2020-09-30 21:11 | disposition home or self-care (01) ==
PROVIDERS: Emergency Medicine; Emergency Provider Emergency Medicine; PCP Student in an Organized Health Care Education/Training Program
DX: K29.70 Gastritis, unspecified, without bleeding (principal); R10.9 Unspecified abdominal pain; R11.2 Nausea with vomiting, unspecified; R19.7 Diarrhea, unspecified
CPT/HCPCS: 36415; 74177; 80053; 81003; 83690; 85025; 85610; 85730; 93005; 93010; 99284; J2270; J2405

== ENCOUNTER 2020-10-01 02:33 | Inpatient (IN) | payer MEDICARE, OTHER, SELFPAY ==
[2020-10-01] VITALS (13 sets, daily range): BP systolic 150–230; BP diastolic 72–105; PULSE 77–98; RESP 16–22; TEMP 36.6–37.4; O2SAT 95–98; BMI 20.4; BMI 20.2
--- NOTE | 2020-10-01 02:41 | ED.GENADULT ---
HPI - General Adult General Chief complaint: Abdominal Pain Stated complaint: terrible abdominal pain Time Seen by Provider: 10/01/20 02:34 Source: patient Mode of arrival: Ambulatory Limitations: no limitations History of Present Illness HPI narrative: Patient is a 80-year-old female who I evaluated the beginning of this shift for epigastric abdominal pain and nausea and vomiting. At that time she had a relatively benign workup except for leukocytosis. Had a CT scan that was concerning for gastritis. Send her home with nausea control and return precautions. She returns to the emergency department for continued/worsening epigastric abdominal pain and vomiting despite the Zofran. She continues to be afebrile. She states that is the same pain that she had at the beginning of the night only worse. She continues to deny any diarrhea. No urinary symptoms. She states that vomiting does improve her symptoms slightly. Related Data Previous Rx's Medication Instructions Recorded amitriptyline 50 mg tablet 50 mg PO QPM #90 tab 03/31/20 lisinopril 20 mg tablet 20 mg PO DAILY #90 tab 06/02/20 atorvastatin 40 mg tablet 40 mg PO BEDTIME #90 tab 06/16/20 atenolol 50 mg tablet 50 mg PO BID #180 tab 08/15/20 tramadol 50 mg tablet 50 mg PO Q6HP PRN #60 tab 08/21/20 Allergies Allergy/AdvReac Type Severity Reaction Status Date / Time alendronate sodium Allergy Unknown GI upset Verified 09/30/20 17:19 [From FOSAMAX] metoprolol [METOPROLOL] Allergy Unknown Verified 09/30/20 17:19 propranolol [PROPRANOLOL] Allergy Unknown Verified 09/30/20 17:19 Review of Systems Constitutional Constitutional: Denies fever(s) Cardiovascular Cardiovascular: Denies chest pain and Denies dyspnea Respiratory Respiratory: Denies dyspnea Gastrointestinal Gastrointestinal: Reports abdominal pain, Denies change in bowel habits, Reports nausea and Reports vomiting Genitourinary Genitourinary: Denies dysuria Genitourinary: Denies dysuria Musculoskeletal Musculoskeletal: Denies arthralgias and Denies myalgias Integumentary/Breasts Skin/Breast: Denies rash Neurologic Neurologic: Denies behavioral changes Psychiatric Psychiatric: Denies behavioral changes Hematologic/Lymphatic On Anticoagulants: No Allergic/Immunologic Allergic/Immunologic: Denies urticaria Patient History Medical History Chronic low back pain Coronary artery disease Essential hypertension (12/22/15) Hair loss Hyperlipemia Hypertension Insomnia Low back pain (12/22/15) Osteopenia Osteoporosis (02/04/15) Palpitations Paroxysmal supraventricular tachycardia Pure hypercholesterolemia (12/22/15) Surgical History (Updated 07/23/20 @ 13:17 by Rashawn Beckman MD) History of colon surgery Hx of cholecystectomy Hx of hysterectomy (1972) Family History Father No problems noted. Mother No problems noted. Social History household members: significant other Smoking Status: Never smoker alcohol intake: current Smoking Status: Never smoker alcohol intake frequency: holidays/special occasions only Substance Use Type: does not use Exam Initial Vital Signs Initial Vital Signs: Vital Signs Temperature 98.7 F 10/01/20 02:42 Pulse Rate 78 10/01/20 02:42 Respiratory Rate 22 10/01/20 02:42 Blood Pressure 208/86 H 10/01/20 02:42 Pulse Oximetry 97 10/01/20 02:42 Const General: cooperative and No comfortable Limitations: mental status not altered HENMT Head: normal to inspection and normocephalic Eyes General: appearance normal, both eyes and all related structures Resp Effort & Inspection: normal respiratory effort Auscultation: clear to auscultation bilaterally Cardio Rate: regular rate Rhythm: regular rhythm GI Inspection: non-distended Palpation: soft and tender (Epigastrium) Skin Lesions: no lesions Rashes: no rashes Neuro General: patient alert, patient awake and patient oriented x3 Cognition: normal cognition Speech: speech normal Extrem General: normal to inspection and capillary refill normal Psych Appearance: grossly normal and well kempt Scores GCS Bell coma scale eye opening: Spontaneous Wilson coma scale verbal response: Orientated Wilson coma scale motor response: Obey commands Wilson coma scale total score: 15 Course Orders Ordered: ED Orders 10/01/20 02:47 CT angio abdomen pelvis Stat 10/01/20 02:50 COVID19 - ADMIT ([employer] swab/PCR) Stat Complete Blood Count AUTO DIFF Stat Comprehensive Metabolic Panel Stat Lactate (Lactic Acid) Stat Lipase Stat Troponin & CK Cardiac Panel Stat 10/01/20 04:18 EKG-12 Lead Stat 10/01/20 04:29 Blood Culture Stat 10/01/20 04:38 Consult to General Surgery Stat Discontinued Medications Hydromorphone HCl (Hydromorphone 0.5 Mg Inj) 0.5 mg IV NOW ONE Stop: 10/01/20 02:42 Last Admin: 10/01/20 02:53 Dose: 0.5 mg Documented by: Sodium Chloride (Normal Saline 0.9%) 1,000 mls @ 1,000 mls/hr IV BOLUS ONE Stop: 10/01/20 03:38 Last Infusion: 10/01/20 03:54 Dose: Infused Documented by: Metoclopramide HCl (Metoclopramide 10 Mg/2 Ml Inj) 10 mg IV NOW ONE Stop: 10/01/20 04:15 Ondansetron HCl (Ondansetron 4 Mg/2 Ml Inj) 4 mg IV NOW ONE Stop: 10/01/20 02:42 Last Admin: 10/01/20 02:54 Dose: 4 mg Documented by: Pantoprazole Sodium (Pantoprazole 40 Mg Vial) 40 mg IV NOW ONE Stop: 10/01/20 02:52 Last Admin: 10/01/20 02:53 Dose: 40 mg Documented by: Vital Signs Vital signs: Vital Signs - 8 hr 10/01/20 02:42 10/01/20 03:01 10/01/20 03:35 Temperature 98.7 F Pulse Rate 78 77 98 H Respiratory Rate 22 22 Blood Pressure 208/86 H 205/105 H Pulse Oximetry 97 95 98 10/01/20 04:00 10/01/20 04:17 Temperature Pulse Rate 89 86 Respiratory Rate Blood Pressure 230/98 H Pulse Oximetry 97 97 Medical Decision Making Lab Data Lab results reviewed: Yes I reviewed the patient's lab results. Result diagrams: 10/01/20 02:50 10/01/20 02:50 Labs: Lab Results 10/01/20 10/01/20 10/01/20 Range/Units 02:50 02:50 02:50 WBC 17.6 H (4.5-11.0) X10^3/uL RBC 4.62 (4.0-5.2) X10^6/uL Hgb 13.4 (12.0-16.0) g/dL Hct 40.3 (36-46) % MCV 87.0 (80-100) fL MCH 29.1 (26-34) PG MCHC 33.4 (30-36) % RDW 12.9 (11.6-14.8) % Plt Count 316 (150-400) X10^3/uL Neut % (Auto) 91.8 H (50-75) % Lymph % (Auto) 2.4 L (25-40) % Sullivan % (Auto) 5.5 (3-14) % Eos % (Auto) 0.0 L (2-4) % Baso % (Auto) 0.3 (0-2) % Neut # (Auto) 67233 H (7976-7169) /uL Lymph # (Auto) 400 L (8232-7339) /uL Sullivan # (Auto) 1000 H (0-900) /uL Eos # (Auto) 0 (0-450) /uL Baso # (Auto) 100 (0-100) /uL Sodium 135 L (137-145) mmol/L Potassium 3.6 (3.4-5.1) mmol/L Chloride 100 (98-107) mmol/L Carbon Dioxide 23 (22-32) mmol/L BUN 13 (7-17) mg/dL Creatinine 0.56 (0.52-1.04) mg/dL Estimated GFR > 60.0 (>60) mL/min BUN/Creatinine Ratio 23.2 H (6-22) Glucose 133 H (80-110) mg/dL Lactate 1.9 (0.7-2.1) mmol/L Calcium 9.3 (8.4-10.2) mg/dL Total Bilirubin 1.0 (0.2-1.3) mg/dL AST 69 H (14-36) IU/L ALT 36 H (<35) IU/L Alkaline Phosphatase 86 (38-126) U/L Total Protein 7.5 (6.3-8.2) g/dL Albumin 4.4 (3.5-5.0) g/dL Globulin 3.1 (1.7-4.1) g/dL Albumin/Globulin Ratio 1.4 (1.0-2.8) Lipase 854 H D (23-300) U/L SARS-CoV-2 (PCR) (Negative) 10/01/20 Range/Units 02:50 WBC (4.5-11.0) X10^3/uL RBC (4.0-5.2) X10^6/uL Hgb (12.0-16.0) g/dL Hct (36-46) % MCV (80-100) fL MCH (26-34) PG MCHC (30-36) % RDW (11.6-14.8) % Plt Count (150-400) X10^3/uL Neut % (Auto) (50-75) % Lymph % (Auto) (25-40) % Sullivan % (Auto) (3-14) % Eos % (Auto) (2-4) % Baso % (Auto) (0-2) % Neut # (Auto) (4910-4527) /uL Lymph # (Auto) (9304-1078) /uL Sullivan # (Auto) (0-900) /uL Eos # (Auto) (0-450) /uL Baso # (Auto) (0-100) /uL Sodium (137-145) mmol/L Potassium (3.4-5.1) mmol/L Chloride (98-107) mmol/L Carbon Dioxide (22-32) mmol/L BUN (7-17) mg/dL Creatinine (0.52-1.04) mg/dL Estimated GFR (>60) mL/min BUN/Creatinine Ratio (6-22) Glucose (80-110) mg/dL Lactate (0.7-2.1) mmol/L Calcium (8.4-10.2) mg/dL Total Bilirubin (0.2-1.3) mg/dL AST (14-36) IU/L ALT (<35) IU/L Alkaline Phosphatase (38-126) U/L Total Protein (6.3-8.2) g/dL Albumin (3.5-5.0) g/dL Globulin (1.7-4.1) g/dL Albumin/Globulin Ratio (1.0-2.8) Lipase (23-300) U/L SARS-CoV-2 (PCR) Negative (Negative) Imaging Data CT scan - abdomen/pelvis: Radiologist's Impression: No bowel obstruction or findings of bowel ischemia Large periampullary duodenal diverticulum with mild dilation of the dorsal pancreatic duct. Dilation of the common bile duct may be secondary to cholecystectomy or intermittent obstruction by duodenal diverticulum. This constellation of findings can be seen with lemmel syndrome which can present clinically with symptoms of intermittent cholangitis and upper abdominal pain. This may be further evaluated with MRCP if clinically indicated. Right hepatic nodules likely a hemangioma but cannot be definitively classified on the single phase contrast scan. Hiatal hernia ECG Data Attestation: I personally reviewed and interpreted this ECG as follows: Prior ECG tracings: available for review Interpretation: Sinus rhythm Ventricular rate 84 Normal axis Normal QRS Normal QTC Nonspecific ST T wave changes Relatively unchanged from EKG prior ED visit today MDM Narrative Medical decision making narrative: Upon arrival patient had fairly significant epigastric abdominal pain. Did seem to be worse than what it was earlier this evening. I would classify the symptoms as pain out of proportion. Because of this I felt that a CTA is warranted for ischemic bowel. The CT scan from her prior visit just a few hours ago was a CT scan with contrast but was not a CT angiogram. The CT scan did not show any indication of bowel ischemia however there were abnormal findings with related to the pancreatic duct and common bile duct. She has had a cholecystectomy. Her labs show a slightly worsening leukocytosis with a continued left shift. She has only a slightly elevation in her LFTs but has a significant elevation in her lipase. I did discuss with her these findings and pancreatitis and she did mention that she thinks she has had a episode of pancreatitis in the past. I feel that this is most likely the cause of her symptoms and the fact that this is her 2nd visit in less than 8 hours, worsening pain, worsening leukocytosis, worsening lipase that she does need admission to the hospital for further evaluation. Blood cultures were obtained however will hold on antibiotics. I discussed the case with ORIN Springer the [facility] provider who will admit for further evaluation treatment. I also discussed the case with Dr. Whitfield who is on-call for General surgery who agreed with admission and holding on antibiotics. I discussed the need for admission with the patient. She expressed understanding and agreement. Discharge Plan Departure Patient Disposition: Admitted as Observation Clinical Impression: Abdominal pain, Leukocytosis, Pancreatitis Admit Date/Time: 10/01/20 04:46 Admit Provider: Aleida Springer
--- NOTE | 2020-10-01 02:47 | DI.CT.S_ITS ---
. PROCEDURE: CT ANGIO ABDOMEN PELVIS INDICATIONS: Abdominal pain out of proportion to exam TECHNIQUE: After the administration of intravenous contrast, 2.5 mm thick sections acquired from the diaphragm to the symphysis. 10 mm maximum-intensity projection (MIP) reformats were then acquired. For radiation dose reduction, the following was used: automated exposure control. COMPARISON: None. FINDINGS: Image quality: Excellent. Aorta: The aorta is normal in caliber and free of evidence of aneurysm or dissection. Mesenteric arteries: Celiac trunk, superior and inferior mesenteric arteries appear patent. Right pelvic arteries: Patent and normal. Left pelvic arteries: Patent and normal, no aneurysm. Extravascular soft tissues: Lung bases are clear. Heart size is normal. Liver is normal in size and enhancement except for a peripherally enhancing right posterior hepatic segment 2 cm nodule showing discontinuous peripheral nodular enhancement consistent with hemangioma.. Gallbladder previously resected . Biliary system is mildly prominent in size with short axis dimension 11 mm. No intrahepatic biliary distension is associated . Pancreas enhances normally. Spleen is normal in size and enhancement. No adrenal nodules. Kidneys are normal in size and enhancement, without hydronephrosis. Non opacified bowel loops are normal in wall thickness and caliber. Note is made of a transverse duodenal diverticulum, prominent in size and directed inferiorly, measuring up to 2.7 cm AP and 3.8 cm transverse. Internal debris is not present but an air-fluid level is seen and there is no adjacent edema within the retroperitoneal fat No free fluid or air. No retroperitoneal or mesenteric adenopathy. No ventral hernias. No suspicious bony lesions. No vertebral body compression fractures. IMPRESSION: 1. 2 cm incidental finding of hepatic hemangioma right posterior hepatic segment. No follow-up recommended. 2. Prior cholecystectomy. There is mild prominence of the common bile duct when this is taken into account. Such prominence is not uncommon in post-cholecystectomy patients. Correlation with liver function tests would assist in determining whether there is some degree of obstructive influence distally. A calcified gallstone within the distal common duct is not seen. MR cholangiogram could be utilized to assess for common bile duct morphology and radiolucent stone presence. 3. 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 Such structures generally are asymptomatic with this appearance. This particular duodenal diverticulum is well distant from the expected position of the common duct insertion into the medial duodenum more superiorly and rightward. 4. No sign of aortic aneurysm or dissection. Source of acute onset abdominal pain is not identified. Dictated by: Mitchell Tilley M.D. on 10/01/2020 at 8:20 Approved by: Mitchell Tilley M.D. on 10/01/2020 at 8:30
[2020-10-01] MEDS: HYDROMORPHONE 0.5 MG INJ IV (02:53)
[2020-10-01] MEDS: PANTOPRAZOLE 40 MG VIAL IV (02:53)
[2020-10-01] MEDS: SODIUM CHLORIDE 0.9% 1,000 ML 1000 ML IV (02:53)
[2020-10-01] MEDS: ONDANSETRON 4 MG/2 ML INJ IV ×2 (02:54→10:24)
[2020-10-01 02:57] LABS: Add Manual Diff / Slide Review NO; Basophils Absolute Auto 100 /uL (0-100); Basophils Percent Auto 0.3 % (0-2); Eosinophils Absolute Auto 0 /uL (0-450); Hematocrit 40.3 % (36-46); Hemoglobin 13.4 g/dL (12.0-16.0); Lymphocytes Absolute Auto 400 /uL (1100-4500); Lymphocytes Percent Auto 2.4 % (25-40); Mean Corpuscular HGB Conc 33.4 % (30-36); Mean Corpuscular Hemoglobin 29.1 PG (26-34); Monocytes Absolute Auto 1000 /uL (0-900); Monocytes Percent Auto 5.5 % (3-14); Neutrophils Absolute Auto 16200 /uL (1500-7000); Neutrophils Percent Auto 91.8 % (50-75); Platelet Count 316 X10^3/uL (150-400); Red Blood Cell Count 4.62 X10^6/uL (4.0-5.2); Red Cell Distribution Width 12.9 % (11.6-14.8); White Blood Cell Count 17.6 X10^3/uL (4.5-11.0)
[2020-10-01 03:09] LABS: Alanine Aminotransferase 36 IU/L (<35); Albumin 4.4 g/dL (3.5-5.0); Albumin Globulin Ratio 1.4 (1.0-2.8); Alkaline Phosphatase 86 U/L (38-126); Aspartate Aminotransferase 69 IU/L (14-36); BUN Creatinine Ratio 23.2 (6-22); Blood Urea Nitrogen 13 mg/dL (7-17); Calcium 9.3 mg/dL (8.4-10.2); Carbon Dioxide 23 mmol/L (22-32); Chloride 100 mmol/L (98-107); Estimated Glomerular Filt Rate > 60.0 mL/min (>60); Globulin 3.1 g/dL (1.7-4.1); Glucose 133 mg/dL (80-110); HEMOLYSIS 41 (0-50); Lactate (Lactic Acid) 1.9 mmol/L (0.7-2.1); Lipase 854 U/L (23-300); Potassium 3.6 mmol/L (3.4-5.1); Sodium 135 mmol/L (137-145); Total Protein 7.5 g/dL (6.3-8.2)
[2020-10-01 03:49] LABS: COVID19 - ADMIT (NP swab/PCR) Negative (Negative)
--- NOTE | 2020-10-01 04:25 | PC.NURSE ---
pt with elevated BP of 230/98. Provider aware, no new orders at this time.
[2020-10-01 04:29] LABS: Creatine Kinase 124 U/L (30-135)
[2020-10-01 04:42] LABS: Troponin I 0.018 ng/mL (0.01-0.034)
[2020-10-01 04:45] LABS: CKMB % Relative Index 1.1 % (1.5-5.0); Creatine Kinase MB 1.37 ng/mL (<2.37)
--- NOTE | 2020-10-01 05:05 | PM.HP.1 ---
History of Present Illness History of Present Illness Date Patient Seen: 10/01/20 Time Patient Seen: 05:05 Chief complaint: terrible abdominal pain Narrative: Patient is a 80-year-old female Joanne Turner who presented to the ED and evaluated for a chief complaint of epigastric abdominal pain and nausea and vomiting. At that time the patient had a relatively benign workup except for leukocytosis (WBC 15 with left shift, AST 45, ALT 22, lipase 46). ABD CT scan was concerning for gastritis. Patient was sent home with nausea control and to return per precautions. She returned to the ED for continued/worsening epigastric abdominal pain and vomiting despite the Zofran. She continues to be afebrile. She states that is the same pain that she had at the beginning of the night only worse. Upon admit to the floor patient states pain is unchanged from ED, and that her pain usually improves after vomiting, she notes that her pain is constant, does not worsen with deep breathing does not vary in intensity, and only mildly improved with pain medication in ED. Her nausea has returned patient is hunched over whimpering in her bed. She states that she has not eaten or had a BM in 24 hours and has been vomiting intermittently for 24 hours and is exhausted, and has not slept. Patient reports that she had acute pancreatitis approximately 10 years ago and this is the same presentation. She continues to deny any diarrhea, urinary symptoms, fever, body aches, chills, rash, jaundice, hematemesis, melena. Patient also denies any history GI bleeding. She states that vomiting does improve her symptoms slightly. Patient has a history of acute pancreatitis, hypertension, coronary artery disease, hyperlipidemia, vertigo, osteoporosis, chronic low back pain, and anxiety. Patient's admit vital signs temp 98.7?, BP 230/98, HR 86, RR 22, O2 sat 97% on room air. Patient's labs WBC increased to 17.6 with a left shift neut 91.8, Na 135, glucose 133, BUN creatinine ratio 23.2 both an increase in AST 69 and ALT 36, lipase increased 854, lactate 1.9. EKG: Sinus rhythm, Ventricular rate 84, Nonspecific ST T wave changes, predominantly unchanged from previous EKG CTA:No bowel obstruction or findings of bowel ischemia. Large periampullary duodenal diverticulum with mild dilation of the dorsal pancreatic duct. Dilation of the common bile duct may be secondary to cholecystectomy or intermittent obstruction by duodenal diverticulum. This constellation of findings can be seen with lemmel syndrome which can present clinically with symptoms of intermittent cholangitis and upper abdominal pain. This may be further evaluated with MRCP if clinically indicated. Right hepatic nodules likely a hemangioma but cannot be definitively classified on the single phase contrast scan. Hiatal hernia. Patient be admitted for acute epigastric abdominal pain with leukocytosis and vomiting rule out acute pancreatitis vs. Acute cholangitis. Patient History Medical History (Updated 10/01/20 @ 06:33 by SULEMAN Ruvalcaba-) Acute pancreatitis Chronic low back pain Coronary artery disease Essential hypertension (12/22/15) Hair loss Hyperlipemia Hypertension Insomnia Low back pain (12/22/15) Osteopenia Osteoporosis (02/04/15) Palpitations Paroxysmal supraventricular tachycardia Pure hypercholesterolemia (12/22/15) Surgical History History of colon surgery Hx of cholecystectomy Hx of hysterectomy (1972) Family & Social History Family History Father No problems noted. Mother No problems noted. Social History: household members significant other Safety & Behavioral: Feels Safe in Current Yes Environment Tobacco & Substance use: Smoking Status Never smoker alcohol intake current alcohol intake frequency holiday/special occasion Substance Use Type does not use Meds Home Medications and Allergies Home Medications Medication Instructions Recorded Confirmed Type amitriptyline 50 mg tablet 50 mg PO QPM #90 tab 03/31/20 10/01/20 Rx lisinopril 20 mg tablet 20 mg PO DAILY #90 tab 06/02/20 10/01/20 Rx atorvastatin 40 mg tablet 40 mg PO BEDTIME #90 tab 06/16/20 10/01/20 Rx atenolol 50 mg tablet 50 mg PO BID #180 tab 08/15/20 10/01/20 Rx tramadol 50 mg tablet 50 mg PO Q6HP PRN #60 tab 08/21/20 10/01/20 Rx Allergies Allergy/AdvReac Type Severity Reaction Status Date / Time alendronate sodium Allergy Unknown GI upset Verified 09/30/20 17:19 [From FOSAMAX] metoprolol [METOPROLOL] Allergy Unknown Verified 09/30/20 17:19 propranolol [PROPRANOLOL] Allergy Unknown Verified 09/30/20 17:19 Review of Systems Review of Systems ROS: Yes All systems reviewed with the patient and are negative except as otherwise documented Constitutional Constitutional: Reports difficulty sleeping, Reports fatigue and Reports poor appetite Gastrointestinal Gastrointestinal: Reports nausea and Reports vomiting Endocrine Endocrine: Reports fatigue Exam Vital Signs (past 8 hours): - 10/01/20 02:42 10/01/20 03:01 10/01/20 03:35 Temperature 98.7 F Pulse Rate 78 77 98 H Respiratory Rate 22 22 Blood Pressure 208/86 H 205/105 H Pulse Oximetry 97 95 98 10/01/20 04:00 10/01/20 04:17 10/01/20 04:30 Temperature Pulse Rate 89 86 85 Respiratory Rate 17 Blood Pressure 230/98 H 204/93 H Pulse Oximetry 97 97 97 Oxygen Delivery Method Room Air Narrative Exam Narrative: General: Patient is a well-developed, well-nourished small framed elderly female in mild distress at this time, though hemodynamically stable. HEENT: Normocephalic, atraumatic, extraocular muscles intact, oral pharynx is clear and mucous membranes are moist. Neck is supple and symmetric, trachea is midline, no adenopathy, no thyroid enlargement, nontender, no masses palpated. Negative for JVD Chest: Normal AP diameter and contour without kyphoscoliosis, no nasal flaring, retractions, or tachypneic labored Lungs: Auscultation of all lung trejo are clear without adventitious sounds, wheezes, rhonchi, or rales. Cardio: S1 & S2 with regular rate and rhythm without murmur, rubs, or gallops, no carotid bruit, no cardiac pulsations present. Abdomen: Firm, positive tenderness in mid epigastric region, negative for organomegaly, or masses. Bowel sounds are significantly decreased and slow in all 4 quadrants without guarding or rebound, no CVA tenderness, negative psoas, obturator, and Antonio's sign. Musculoskeletal: Muscle strength and tone are equal within normal limits, no deformity, crepitus, effusions, cyanosis, clubbing or edema present. Full range of motion intact radial and pedal pulses are normal. Skin: Warm dry and intact without rashes, ulcerations or petechiae. Neuro: Alert and orientated x3, strength is +5/5 in all extremities, sensation to touch intact, no gross deficits noted of cranial nerves. Psych: Patient has a well-kept appearance, appropriate affect, mental status attitude thought context and judgment are appropriate for age. Objective Labs Result Diagrams: 10/01/20 02:50 10/01/20 02:50 Labs: Laboratory Results - last 24 hr 10/01/20 10/01/20 10/01/20 02:50 02:50 02:50 WBC 17.6 H RBC 4.62 Hgb 13.4 Hct 40.3 MCV 87.0 MCH 29.1 MCHC 33.4 RDW 12.9 Plt Count 316 Neut % (Auto) 91.8 H Lymph % (Auto) 2.4 L [place] % (Auto) 5.5 Eos % (Auto) 0.0 L Baso % (Auto) 0.3 Neut # (Auto) 61418 H Lymph # (Auto) 400 L [place] # (Auto) 1000 H Eos # (Auto) 0 Baso # (Auto) 100 Sodium 135 L Potassium 3.6 Chloride 100 Carbon Dioxide 23 BUN 13 Creatinine 0.56 Estimated GFR > 60.0 BUN/Creatinine Ratio 23.2 H Glucose 133 H Lactate 1.9 Calcium 9.3 Total Bilirubin 1.0 AST 69 H ALT 36 H Alkaline Phosphatase 86 Total Creatine Kinase CK-MB (CK-2) CK-MB (CK-2) Rel Index Troponin I Total Protein 7.5 Albumin 4.4 Globulin 3.1 Albumin/Globulin Ratio 1.4 Lipase 854 H D SARS-CoV-2 (PCR) 10/01/20 10/01/20 02:50 02:50 WBC RBC Hgb Hct MCV MCH MCHC RDW Plt Count Neut % (Auto) Lymph % (Auto) [place] % (Auto) Eos % (Auto) Baso % (Auto) Neut # (Auto) Lymph # (Auto) [place] # (Auto) Eos # (Auto) Baso # (Auto) Sodium Potassium Chloride Carbon Dioxide BUN Creatinine Estimated GFR BUN/Creatinine Ratio Glucose Lactate Calcium Total Bilirubin AST ALT Alkaline Phosphatase Total Creatine Kinase 124 CK-MB (CK-2) 1.37 CK-MB (CK-2) Rel Index 1.1 L Troponin I 0.018 Total Protein Albumin Globulin Albumin/Globulin Ratio Lipase SARS-CoV-2 (PCR) Negative Assessment & Plan Assessment & Plan narrative: This patient requires acute care inpatient hospital management for acute upper mid epigastric abdominal pain possible acute pancreatitis vs acute cholangitis, after failing outpatient management. The patient is at much higher risk for medical and surgical complications because of her history of acute pancreatitis, hypertension, coronary artery disease, hyperlipidemia, vertigo, osteoporosis, chronic low back pain, and anxiety. These factors increase the difficulty and complexity of medical and surgical interventions and increases the chances of poor outcomes such as morbidity and mortality. 1. Acute upper mid-epigastric abdominal pain presenting with leukocytosis and precipitated by hypovolemia from vomiting, acute, present on admission, stable Differential diagnosis includes possible acute on chronic pancreatitis vs. Acute cholangitis vs. biliary leak vs. microscopic colitis vs. Ischemic colitis vs. less likely infectious colitis. -monitor patient for organ dysfunction and septic shock. admit vital signs temp 98.7?, BP 230/98, HR 86, RR 22, O2 sat 97% on room air. Patient's labs WBC increased to 17.6 with a left shift neut 91.8, Na 135, glucose 133, BUN creatinine ratio 23.2 both an increase in AST 69 and ALT 36, lipase increased 854, lactate 1.9. EKG: Sinus rhythm, Ventricular rate 84, Nonspecific ST T wave changes, predominantly unchanged from previous EKG CTA:No bowel obstruction or findings of bowel ischemia. Large periampullary duodenal diverticulum with mild dilation of the dorsal pancreatic duct. Dilation of the common bile duct may be secondary to cholecystectomy or intermittent obstruction by duodenal diverticulum. This constellation of findings can be seen with lemmel syndrome which can present clinically with symptoms of intermittent cholangitis and upper abdominal pain. This may be further evaluated with MRCP if clinically indicated. Right hepatic nodules likely a hemangioma but cannot be definitively classified on the single phase contrast scan. Hiatal hernia. -started Entrapenum 1gram Q24hrs for empiric antibiotics for intra-abdominal infections against enteric streptococci, coliforms, and anaerobes for community-acquired acute coli light diet is of low to moderate risk per UpToDate. -Continue antiemetics and as needed pain medication. -rehydration: Patient received 1L NS Bolus in the emergency room, rehydration to continue LR @100cc/hr with a goal of 0.5 cc/kilogram per hour of urine output-monitor for fluid overload -amylase 233, lipase 854, GGT 43, CRP 5.2 -patient NPO-started on trial clear liquids once patient has sustained absence of vomiting and diarrhea, the goal to resolve in 24-48 hours, once patient has completed a trial of clear liquids may advance to a low-fiber diet as tolerated -monitor hematocrit and BUN q.8 hours-if BUN rise will increase fluids and give 2 L bolus of crystalloid -patient admit to ICU to be monitored on tele medicine, vital signs q. 1 hours, intake and output monitored Q shift, weight measure daily, diet:NPO -a.m. Labs amylase, CRP, CMP and CBC 2. Hypertension, acute on chronic, uncontrolled, present on admission. -Continue patients atenolol, lisinopril 3. Hyperlipidemia, chronic, present on admission. Stable. -continue patient's Atrovastatin 4. Anxiety, generalized, not present on admission -continue patient's amitriptyline Code status: DNR Surrogate decisionmaker: Torin VOGEL PCR: Negative VTE/DVT prophylaxis: Contraindicated for both risk of bleeding and possible needed surgical interventions, SCDs applied Scores GCS [place] coma scale eye opening: Spontaneous [place] coma scale verbal response: Orientated [place] coma scale motor response: Obey commands [place] coma scale total score: 15 SOFA PaO2/FIO2: >=400 mmHg Platelets: >= 150 Bilirubin: < 1.2 mg/dL Hypotension: MAP >= 70 mmHg [place] Coma Scale: 15 Renal: < 1.2 mg/dL SOFA Score: 0 Wells' Criteria for PE Clinical signs and symptoms of DVT: No PE is #1 Dx or equally likely: No Heart rate > 100: No Immobilization at least 3 days or surg in previous 4 weeks: No History of PE or DVT: No Hemoptysis: No Malignancy w/Treatment within 6 months or palliative: No Wells' PE Score total: 0
[2020-10-01 05:07] LABS: Amylase 233 U/L (30-110); C-Reactive Protein Quant 5.2 mg/dL (<1.0); Magnesium 1.6 mg/dL (1.6-2.3)
--- NOTE | 2020-10-01 05:23 | DI.MRI.S_ITS ---
PROCEDURE: MR ABDOMEN WO CON INDICATIONS: R/O acute pancreatitis TECHNIQUE: Coronal HASTE through the abdomen, axial 2-D FLASH in- and [id number], and breath-hold T2 FSE with fat saturation through the biliary system and pancreas. Oblique coronal and axial thin-slice HASTE, radial thick-slab HASTE centered on the extrahepatic bile ducts. Intravenous secretin: Not requested. COMPARISON: [facility], CT, CT ABDOMEN PELVIS W CON, 09/30/2020, 19:50. [facility], CT, CT ANGIO ABDOMEN PELVIS, 10/01/2020, 2:55. FINDINGS: Image quality: Excellent. Pancreas and biliary system: Intra-hepatic biliary ducts are non dilated. The common bile duct is mildly prominent in this patient with prior cholecystectomy, 10 mm. A distal common duct calculus or extrinsic mass is not seen. Normal tapering of the duct at the ampulla. Pancreas is normal in morphology, without adjacent soft tissue edema. Pancreatic duct is normal in caliber, without developmental anomalies. Gallbladder is surgically absent . A relatively large duodenal diverticulum is again seen emanating cephalad from the transverse duodenum, not impinging on the adjacent nearby pancreatic or biliary ducts. Other solid organs: Liver is normal in size. The liver contains a previously documented hepatic hemangioma right posterior hepatic segment Spleen is normal in size. No adrenal nodules. Both kidneys are normal in size, without hydronephrosis. Nodes and vessels: No retroperitoneal or mesenteric adenopathy by size criteria. Aorta and inferior vena cava are normal in size. Bowel and peritoneum: Unenhanced bowel loops are normal in caliber. No free fluid. Lung bases: No basal pleural effusions. Heart size is normal. Bones and soft tissues: No ventral hernias. Bone marrow is of normal overall signal. IMPRESSION: No evidence of acute pancreatitis. Note is again made of a hepatic hemangioma requiring no follow-up within the right posterior hepatic segment, measuring approximately 2 cm in diameter. 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 No additional follow-up of this finding is recommended. Prior cholecystectomy. Dictated by: Mitchell Tilley M.D. on 10/01/2020 at 12:11 Approved by: Mitchell Tilley M.D. on 10/01/2020 at 12:33
[2020-10-01] MEDS: HYDROMORPHONE 1 MG INJ 0.5 MG IV (05:37)
[2020-10-01 05:47] LABS: Gamma Glutamyl Transpeptidase 43 U/L (12-43)
[2020-10-01] MEDS: METOCLOPRAMIDE 10 MG/2 ML INJ IV (05:55)
[2020-10-01] MEDS: LACTATED RINGERS 1,000 ML 100 ML IV (06:01)
[2020-10-01] MEDS: ERTAPENEM 1 GM in SODIUM CHLORIDE 0.9% 100 ML 200 ML IV (06:01)
[2020-10-01] MEDS: SODIUM CHLORIDE 0.9% 1,000 ML 150 ML IV (07:55)
[2020-10-01] MEDS: HYDROMORPHONE 1 MG INJ IV ×3 (09:49→20:04)
[2020-10-01 09:50] LABS: INR 1.2 (0.9-1.3); Prothrombin Time 13.6 SECONDS (10.1-12.7)
[2020-10-01 09:56] LABS: Alanine Aminotransferase 96 IU/L (<35); Albumin 4.1 g/dL (3.5-5.0); Albumin Globulin Ratio 1.5 (1.0-2.8); Alkaline Phosphatase 112 U/L (38-126); Aspartate Aminotransferase 184 IU/L (14-36); Bilirubin Total 0.8 mg/dL (0.2-1.3); Bilirubin Unconjugated 0.7 mg/dL (0.0-1.1); Globulin 2.8 g/dL (1.7-4.1); HEMOLYSIS < 15 (0-50); Lactate Dehydrogenase 835 U/L (313-618); Lipase 397 U/L (23-300); Total Protein 6.9 g/dL (6.3-8.2)
[2020-10-01 10:16] LABS: Cholesterol 158 mg/dL (140-199); HDL Cholesterol 62 mg/dL (40-60); LDL Cholesterol Calculated 84 mg/dL (<100); Triglycerides 61 mg/dL (35-150)
--- NOTE | 2020-10-01 10:30 | PC.NURSE ---
Addendum entered by Gabrielle Ventura R.N. 10/01/20 14:56: Patient just given iv dilaudid for complaints of 6/10 pain. She was also given zofran earlier with dilaudid before going to her CT. Getting blood drawn now and ivf increased to 250cc/hr Original Note: Assess- Patient is having pain to her mid abdomen. Just given 1mg of iv dilaudid and zofran for nausea. She states that her pain is less, no emesis noted. She is NPO and would like some ice chips, doctor did not think this was a good idea as it would make her pain worse. BT are hypoactive x4, just down to MRI.
--- NOTE | 2020-10-01 11:05 | CM.IDA ---
Initial DCP Assessment Note Pt is a 80 yo female, resident of [place], patient admitted observation for persistent abd pain w/N/V, suspected acute pancreatitis vs acute cholangitis PCP: Rashawn Beckman Payer: [employer] Reviewed chart, met w/patient this morning during multidisciplinary rounds, introduced role. Patient whimpering in pain, hunched over; Dr Bernal ordered Dilaudid for pain management this morning. Patient is NPO, awaiting consult from general surgery. Patient states her partner Won was with her last night and is at home sleeping, might be coming in this afternoon. Will plan to follow closely and reassess needs as medical POC unfolds SANDOR Soni Discharge Planning/Care Management CM Discharge Assessment Start: 10/01/20 10:59 Freq: Status: Active Protocol: Document 10/01/20 10:59 JASON (Rec: 10/01/20 11:05 JASON [id number]) Discharge Planning Assessment Assigned Business Development Analyst SANDOR Haney DPOA/Assigned Designee Name Isaias Lei, Arsalan Lamb, partner Contact Information Isaias: [phone] Won: [phone] Advance Directives? No History Provided By Patient,Medical Record Prior Living Arrangements Mobile home Household Members significant other Independent with ADL's Functional baseline unknown at this time Comment Unknown at this time, patient may benefit from HH if she returns home Discharge Plan Home Transportation Arrangement Family
--- NOTE | 2020-10-01 11:51 | P.PN_ITS ---
Subjective Subjective Date Patient Seen: 10/01/20 Time Patient Seen: 08:51 Interval history: She is still in significant pain today. She is also very nauseous. She does not want to eat currently. Exam Vital Signs (past 8 hours): - 10/01/20 04:00 10/01/20 04:17 10/01/20 04:30 Temperature Pulse Rate 89 86 85 Respiratory Rate 17 Blood Pressure 230/98 H 204/93 H Pulse Oximetry 97 97 97 10/01/20 05:30 10/01/20 08:46 Temperature 99.0 F 98.8 F Pulse Rate 83 88 Respiratory Rate 18 17 Blood Pressure 163/75 H 188/72 H Pulse Oximetry 97 96 Oxygen Delivery Method Room Air Oxygen Flow Rate 0 Narrative Exam Narrative: General: thin woman in mild distress from pain and nausea HEENT: mucous membranes are dry. Negative for JVD Lungs: clear bilaterally with no wheezes, rhonchi, or rales. Cardio: regular rate and rhythm without murmur, rubs, or gallops Abdomen: tenderness in mid epigastric region, no organomegaly, or masses. Bowel sounds decreased, no guarding or rebound EXTREMITIES: no edema Skin: Warm dry and intact without rashes, ulcerations or petechiae. Neuro: Alert and orientated x3, strength is +5/5 in all extremities, sensation to touch intact Psych: cooperative, pleasant mood Objective Labs Result Diagrams: 10/01/20 02:50 10/01/20 02:50 Labs: Laboratory Results - last 24 hr 10/01/20 10/01/20 10/01/20 02:50 02:50 02:50 WBC 17.6 H RBC 4.62 Hgb 13.4 Hct 40.3 MCV 87.0 MCH 29.1 MCHC 33.4 RDW 12.9 Plt Count 316 Neut % (Auto) 91.8 H Lymph % (Auto) 2.4 L [place] % (Auto) 5.5 Eos % (Auto) 0.0 L Baso % (Auto) 0.3 Neut # (Auto) 36099 H Lymph # (Auto) 400 L [place] # (Auto) 1000 H Eos # (Auto) 0 Baso # (Auto) 100 PT INR Sodium 135 L Potassium 3.6 Chloride 100 Carbon Dioxide 23 BUN 13 Creatinine 0.56 Estimated GFR > 60.0 BUN/Creatinine Ratio 23.2 H Glucose 133 H Lactate 1.9 Calcium 9.3 Magnesium Total Bilirubin 1.0 Conjugated Bilirubin Unconjugated Bilirubin GGT AST 69 H ALT 36 H Alkaline Phosphatase 86 Lactate Dehydrogenase Total Creatine Kinase CK-MB (CK-2) CK-MB (CK-2) Rel Index Troponin I C-Reactive Protein Total Protein 7.5 Albumin 4.4 Globulin 3.1 Albumin/Globulin Ratio 1.4 Triglycerides Cholesterol LDL Cholesterol, Calc HDL Cholesterol Amylase Lipase 854 H D SARS-CoV-2 (PCR) 10/01/20 10/01/20 10/01/20 02:50 02:50 02:50 WBC RBC Hgb Hct MCV MCH MCHC RDW Plt Count Neut % (Auto) Lymph % (Auto) [place] % (Auto) Eos % (Auto) Baso % (Auto) Neut # (Auto) Lymph # (Auto) [place] # (Auto) Eos # (Auto) Baso # (Auto) PT INR Sodium Potassium Chloride Carbon Dioxide BUN Creatinine Estimated GFR BUN/Creatinine Ratio Glucose Lactate Calcium Magnesium 1.6 Total Bilirubin Conjugated Bilirubin Unconjugated Bilirubin GGT AST ALT Alkaline Phosphatase Lactate Dehydrogenase Total Creatine Kinase 124 CK-MB (CK-2) 1.37 CK-MB (CK-2) Rel Index 1.1 L Troponin I 0.018 C-Reactive Protein 5.2 H Total Protein Albumin Globulin Albumin/Globulin Ratio Triglycerides Cholesterol LDL Cholesterol, Calc HDL Cholesterol Amylase 233 H Lipase SARS-CoV-2 (PCR) Negative 10/01/20 10/01/20 10/01/20 02:50 09:30 09:30 WBC RBC Hgb Hct MCV MCH MCHC RDW Plt Count Neut % (Auto) Lymph % (Auto) [place] % (Auto) Eos % (Auto) Baso % (Auto) Neut # (Auto) Lymph # (Auto) [place] # (Auto) Eos # (Auto) Baso # (Auto) PT 13.6 H INR 1.2 Sodium Potassium Chloride Carbon Dioxide BUN Creatinine Estimated GFR BUN/Creatinine Ratio Glucose Lactate Calcium Magnesium Total Bilirubin Conjugated Bilirubin Unconjugated Bilirubin GGT 43 AST ALT Alkaline Phosphatase Lactate Dehydrogenase Total Creatine Kinase CK-MB (CK-2) CK-MB (CK-2) Rel Index Troponin I C-Reactive Protein Total Protein Albumin Globulin Albumin/Globulin Ratio Triglycerides 61 Cholesterol 158 LDL Cholesterol, Calc 84 HDL Cholesterol 62 H Amylase Lipase SARS-CoV-2 (PCR) 10/01/20 09:30 WBC RBC Hgb Hct MCV MCH MCHC RDW Plt Count Neut % (Auto) Lymph % (Auto) [place] % (Auto) Eos % (Auto) Baso % (Auto) Neut # (Auto) Lymph # (Auto) [place] # (Auto) Eos # (Auto) Baso # (Auto) PT INR Sodium Potassium Chloride Carbon Dioxide BUN Creatinine Estimated GFR BUN/Creatinine Ratio Glucose Lactate Calcium Magnesium Total Bilirubin 0.8 Conjugated Bilirubin 0.0 Unconjugated Bilirubin 0.7 GGT AST 184 H ALT 96 H Alkaline Phosphatase 112 Lactate Dehydrogenase 835 H Total Creatine Kinase CK-MB (CK-2) CK-MB (CK-2) Rel Index Troponin I C-Reactive Protein Total Protein 6.9 Albumin 4.1 Globulin 2.8 Albumin/Globulin Ratio 1.5 Triglycerides Cholesterol LDL Cholesterol, Calc HDL Cholesterol Amylase Lipase 397 H D SARS-CoV-2 (PCR) REPLACED BY [facility] Medical History (Updated 10/01/20 @ 06:33 by JAGUAR Ruvalcaba) Acute pancreatitis Chronic low back pain Coronary artery disease Essential hypertension (12/22/15) Hair loss Hyperlipemia Hypertension Insomnia Low back pain (12/22/15) Osteopenia Osteoporosis (02/04/15) Palpitations Paroxysmal supraventricular tachycardia Pure hypercholesterolemia (12/22/15) Surgical History History of colon surgery Hx of cholecystectomy Hx of hysterectomy (1972) Family History Father No problems noted. Mother No problems noted. Social History household members: significant other Smoking Status: Former smoker alcohol intake: current Assessment & Plan Assessment & Plan narrative: 80W with PMH pancreatitis, hypertension, CAD, hyperlipidemia, vertigo, osteoporosis, chronic low back pain, and anxiety who comes in with significant epigastric pain, nausea, and vomiting, with elevated lipase concerning for acute pancreatitis 1. Probable acute pancreatitis vs gastritis -lipase elevated to 800s -CT shows large duodenal diverticulum contatining air/fluid level but no evidence of inflammation that is distant from expected position of CBD insertion, normal appearing pancreas -MRCP ordered to further evaluate -antibiotics stopped as unlikely she has infection, there is an elevated white count likely from pancreatitis, however she has no obstructive findings on CT, no fevers -low threshold to restart if clinically changes -aggressive IVF at 250cc/hr for pancreatitis -IV dilaudid q3 hr, with PRN zofran IV for symptoms -continue NPO for now given symptoms are not controlled -appreciate surgery consult -monitor electrolytes frequently 2. Hypertension, acute on chronic, uncontrolled, present on admission. -hold oral medications for now 3. Hyperlipidemia, chronic, present on admission. Stable. -hold patient's Atrovastatin 4. Anxiety, generalized, not present on admission -hold patient's amitriptyline Code status: DNR Surrogate decisionmaker: Torin VOGEL PCR: Negative VTE/DVT prophylaxis: lovenox 40 sc daily
[2020-10-01 11:59] LABS: Creatine Kinase 117 U/L (30-135)
[2020-10-01 12:12] LABS: Troponin I 0.043 ng/mL (0.01-0.034)
[2020-10-01 12:15] LABS: CKMB % Relative Index 1.7 % (1.5-5.0); Creatine Kinase MB 2.03 ng/mL (<2.37)
[2020-10-01] MEDS: ENOXAPARIN 40 MG/0.4 ML SYRINGE SUBCUT (13:27)
[2020-10-01] MEDS: SODIUM CHLORIDE 0.9% 1,000 ML 250 ML IV ×3 (13:53→22:56)
--- NOTE | 2020-10-01 14:19 | DIET.PN ---
Dietary Progress Note RD attempted to visit c pt today regarding her current hospitalization to understand dietary routine and possible contributing factors. Pt in too much pain to talk today, will attempt tomorrow am.
--- NOTE | 2020-10-01 14:20 | P.CONS_ITS ---
History of Present Illness Consult details Date Patient Seen: 10/01/20 Time Patient Seen: 14:20 Chief complaint: terrible abdominal pain Narrative: 80-year-old female seen in consultation for acute abdominal pain. She presented to the emergency room last night with acute epigastric pain and nausea and vomiting. CT abdomen pelvis 1. Thickened appearance of the stomach 2. Mild prominence of the common bile duct within acceptable limits for post cholecystectomy sequela. 3. Mild scattered subcentimeter right lower quadrant lymph nodes. She was discharged from the emergency room and returned several hours later with worsening abdominal pain this time underwent CTA abdomen 1. 2 cm incidental finding of hepatic hemangioma right posterior hepatic segment. 2. Prior cholecystectomy. 3. 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 Normotensive and without tachycardia. WBC 18, Cr 0.6, Lactate 1.9, TB 0.8, AST 184, ALT 96, Amylase 233, Lipase 397 this AM from 800 last night. She had an MRCP this AM which was normal including the pancrease. Currently with epigastric pain and nauseated, No blood per rectum. On prior episode of pancreatitis of unknown etiology she does not drink and had a prior cholecystectomy. . Meds Home Medications and Allergies Home Medications Medication Instructions Recorded Confirmed Type amitriptyline 50 mg tablet 50 mg PO QPM #90 tab 03/31/20 10/01/20 Rx lisinopril 20 mg tablet 20 mg PO DAILY #90 tab 06/02/20 10/01/20 Rx atorvastatin 40 mg tablet 40 mg PO BEDTIME #90 tab 06/16/20 10/01/20 Rx atenolol 50 mg tablet 50 mg PO BID #180 tab 08/15/20 10/01/20 Rx tramadol 50 mg tablet 50 mg PO Q6HP PRN #60 tab 08/21/20 10/01/20 Rx Allergies Allergy/AdvReac Type Severity Reaction Status Date / Time alendronate sodium Allergy Unknown GI upset Verified 09/30/20 17:19 [From FOSAMAX] metoprolol [METOPROLOL] Allergy Unknown Verified 09/30/20 17:19 propranolol [PROPRANOLOL] Allergy Unknown Verified 09/30/20 17:19 Review of Systems Review of Systems ROS: Yes All systems reviewed with the patient and are negative except as o therwise documented Exam Vital Signs (past 8 hours): - 10/01/20 08:46 10/01/20 12:00 Temperature 98.8 F 97.9 F Pulse Rate 88 89 Respiratory Rate 17 16 Blood Pressure 188/72 H 175/73 H Pulse Oximetry 96 96 Oxygen Delivery Method Room Air Oxygen Flow Rate 0 Narrative Exam Narrative: GENERAL-thin elderly male, no acute distress HEENT-no scleral icterus, hearing intact NECK-no JVD, trachea midline CVS- regular rate, no peripheral edema RESP-unlabored respiratory effort, no audible wheezing GI-tender to palpation around the umbilicus. No peritonitis. MSK-no cyanosis or clubbing, extremities without deformity SKIN-warm, dry NEURO-alert and oriented, no focal deficits PYSCH-Appropriate mood and affect Objective Labs Result Diagrams: 10/01/20 02:50 10/01/20 02:50 Labs: Laboratory Results - last 24 hr 10/01/20 10/01/20 10/01/20 02:50 02:50 02:50 WBC 17.6 H RBC 4.62 Hgb 13.4 Hct 40.3 MCV 87.0 MCH 29.1 MCHC 33.4 RDW 12.9 Plt Count 316 Neut % (Auto) 91.8 H Lymph % (Auto) 2.4 L [place] % (Auto) 5.5 Eos % (Auto) 0.0 L Baso % (Auto) 0.3 Neut # (Auto) 54783 H Lymph # (Auto) 400 L [place] # (Auto) 1000 H Eos # (Auto) 0 Baso # (Auto) 100 PT INR Sodium 135 L Potassium 3.6 Chloride 100 Carbon Dioxide 23 BUN 13 Creatinine 0.56 Estimated GFR > 60.0 BUN/Creatinine Ratio 23.2 H Glucose 133 H Lactate 1.9 Calcium 9.3 Magnesium Total Bilirubin 1.0 Conjugated Bilirubin Unconjugated Bilirubin GGT AST 69 H ALT 36 H Alkaline Phosphatase 86 Lactate Dehydrogenase Total Creatine Kinase CK-MB (CK-2) CK-MB (CK-2) Rel Index Troponin I C-Reactive Protein Total Protein 7.5 Albumin 4.4 Globulin 3.1 Albumin/Globulin Ratio 1.4 Triglycerides Cholesterol LDL Cholesterol, Calc HDL Cholesterol Amylase Lipase 854 H D SARS-CoV-2 (PCR) 10/01/20 10/01/20 10/01/20 02:50 02:50 02:50 WBC RBC Hgb Hct MCV MCH MCHC RDW Plt Count Neut % (Auto) Lymph % (Auto) [place] % (Auto) Eos % (Auto) Baso % (Auto) Neut # (Auto) Lymph # (Auto) [place] # (Auto) Eos # (Auto) Baso # (Auto) PT INR Sodium Potassium Chloride Carbon Dioxide BUN Creatinine Estimated GFR BUN/Creatinine Ratio Glucose Lactate Calcium Magnesium 1.6 Total Bilirubin Conjugated Bilirubin Unconjugated Bilirubin GGT AST ALT Alkaline Phosphatase Lactate Dehydrogenase Total Creatine Kinase 124 CK-MB (CK-2) 1.37 CK-MB (CK-2) Rel Index 1.1 L Troponin I 0.018 C-Reactive Protein 5.2 H Total Protein Albumin Globulin Albumin/Globulin Ratio Triglycerides Cholesterol LDL Cholesterol, Calc HDL Cholesterol Amylase 233 H Lipase SARS-CoV-2 (PCR) Negative 10/01/20 10/01/20 10/01/20 02:50 09:30 09:30 WBC RBC Hgb Hct MCV MCH MCHC RDW Plt Count Neut % (Auto) Lymph % (Auto) [place] % (Auto) Eos % (Auto) Baso % (Auto) Neut # (Auto) Lymph # (Auto) [place] # (Auto) Eos # (Auto) Baso # (Auto) PT 13.6 H INR 1.2 Sodium Potassium Chloride Carbon Dioxide BUN Creatinine Estimated GFR BUN/Creatinine Ratio Glucose Lactate Calcium Magnesium Total Bilirubin Conjugated Bilirubin Unconjugated Bilirubin GGT 43 AST ALT Alkaline Phosphatase Lactate Dehydrogenase Total Creatine Kinase CK-MB (CK-2) CK-MB (CK-2) Rel Index Troponin I C-Reactive Protein Total Protein Albumin Globulin Albumin/Globulin Ratio Triglycerides 61 Cholesterol 158 LDL Cholesterol, Calc 84 HDL Cholesterol 62 H Amylase Lipase SARS-CoV-2 (PCR) 10/01/20 10/01/20 09:30 11:38 WBC RBC Hgb Hct MCV MCH MCHC RDW Plt Count Neut % (Auto) Lymph % (Auto) [place] % (Auto) Eos % (Auto) Baso % (Auto) Neut # (Auto) Lymph # (Auto) [place] # (Auto) Eos # (Auto) Baso # (Auto) PT INR Sodium Potassium Chloride Carbon Dioxide BUN Creatinine Estimated GFR BUN/Creatinine Ratio Glucose Lactate Calcium Magnesium Total Bilirubin 0.8 Conjugated Bilirubin 0.0 Unconjugated Bilirubin 0.7 GGT AST 184 H ALT 96 H Alkaline Phosphatase 112 Lactate Dehydrogenase 835 H Total Creatine Kinase 117 CK-MB (CK-2) 2.03 D CK-MB (CK-2) Rel Index 1.7 Troponin I 0.043 H C-Reactive Protein Total Protein 6.9 Albumin 4.1 Globulin 2.8 Albumin/Globulin Ratio 1.5 Triglycerides Cholesterol LDL Cholesterol, Calc HDL Cholesterol Amylase Lipase 397 H D SARS-CoV-2 (PCR) Assessment & Plan Assessment & Plan narrative: 80-year-old female admitted to the hospital with acute abdominal pain unknown etiology. She is hemodynamically stable without peritonitis. I reviewed her CT abdomen pelvis, CTA abdomen pelvis and MRCP. Imaging is largely unremarkable. No evidence free air, free fluid, colitis, pancreatitis, or obstruction. Laboratory studies are notable for WBC 17 and Llipase 400 down from 850 at admission. She may have mild pancreatitis not demonstrated on imaging. No acute surgical intervention. -continue IV fluid resuscitation -pain control -repeat labs CBC CMP and lactate this afternoon. -NPO -Serial abdominal exams
[2020-10-01 16:54] LABS: BUN Creatinine Ratio 21.2 (6-22); Blood Urea Nitrogen 11 mg/dL (7-17); Calcium 8.1 mg/dL (8.4-10.2); Carbon Dioxide 24 mmol/L (22-32); Chloride 105 mmol/L (98-107); Estimated Glomerular Filt Rate > 60.0 mL/min (>60); Glucose 129 mg/dL (80-110); HEMOLYSIS < 15 (0-50); Potassium 3.3 mmol/L (3.4-5.1); Sodium 136 mmol/L (137-145)
[2020-10-01 17:33] LABS: Hematocrit 33.5 % (36-46); Hemoglobin 11.4 g/dL (12.0-16.0); Mean Corpuscular HGB Conc 33.9 % (30-36); Mean Corpuscular Hemoglobin 29.1 PG (26-34); Mean Corpuscular Volume 85.8 fL (80-100); Platelet Count 255 X10^3/uL (150-400); Red Blood Cell Count 3.91 X10^6/uL (4.0-5.2); Red Cell Distribution Width 12.5 % (11.6-14.8); White Blood Cell Count 14.9 X10^3/uL (4.5-11.0)
[2020-10-01 17:52] LABS: Troponin I 0.064 ng/mL (0.01-0.034)
[2020-10-01 18:15] LABS: Acinetobacter baumannii Not Detected (Not Detect); Candida albicans Not Detected (Not Detect); Candida glabrata Not Detected (Not Detect); Candida krusei Not Detected (Not Detect); Candida parapsilosis Not Detected (Not Detect); Candida tropicalis Not Detected (Not Detect); E. coli Not Detected (Not Detect); Enterobacter cloacae complex Not Detected (Not Detect); Enterobacteriaceae species Not Detected (Not Detect); Enterococcus species Not Detected (Not Detect); Haemophilus influenzae Not Detected (Not Detect); Listeria monocytogenes Not Detected (Not Detect); Neisseria meningitidis Not Detected (Not Detect); Proteus species Not Detected (Not Detect); Pseudomonas aeruginosa Not Detected (Not Detect); Serratia marcescens Not Detected (Not Detect); Staphylococcus species Not Detected (Not Detect); Streptococcus agalactiae (Gr B Not Detected (Not Detect); Streptococcus pneumonia Not Detected (Not Detect); Streptococcus pyogenes (Gr A) Not Detected (Not Detect); Streptococcus species Not Detected (Not Detect)
[2020-10-02] MEDS: HYDROMORPHONE 1 MG INJ IV ×3 (00:26→06:55)
[2020-10-02] MEDS: POTASSIUM CHLORIDE 20 MEQ in SODIUM CHLORIDE 0.9% 250 ML 130 ML IV (00:27)
[2020-10-02] MEDS: HYDROMORPHONE 0.5 MG INJ IV (01:20)
--- NOTE | 2020-10-02 02:58 | PC.NURSE ---
Pt reported severe breakthrough pain at approx 0100. Provider notified, had given 1 mg dilaudid about 1 hr prior to this episode, 0.5 mg dilaudid ordered once. Pain reduced to tolerable levels.
[2020-10-02 03:30] VITALS: BP 162/77; PULSE 68; RESP 16; TEMP 36.7; O2SAT 95
--- NOTE | 2020-10-02 04:14 | PC.NURSE ---
04:13- Provider notified of presence of gram negative bacilli in blood culture collected 10/01/20 at 0443.
[2020-10-02] MEDS: PIPERACILLIN/TAZO 4.5 GM in SODIUM CHLORIDE 0.9% 100 ML 200 ML IV (05:45)
[2020-10-02 05:59] LABS: INR 1.3 (0.9-1.3); Prothrombin Time 14.8 SECONDS (10.1-12.7)
[2020-10-02 06:12] LABS: Alanine Aminotransferase 299 IU/L (<35); Albumin Globulin Ratio 1.1 (1.0-2.8); Alkaline Phosphatase 186 U/L (38-126); Aspartate Aminotransferase 477 IU/L (14-36); Bilirubin Conjugated 0.7 md/dL (0.0-0.3); Bilirubin Total 2.2 mg/dL (0.2-1.3); Bilirubin Unconjugated 0.9 mg/dL (0.0-1.1); Globulin 2.8 g/dL (1.7-4.1); HEMOLYSIS < 15 (0-50); Magnesium 1.9 mg/dL (1.6-2.3); Total Protein 5.8 g/dL (6.3-8.2)
[2020-10-02 06:13] LABS: Lactate (Lactic Acid) 0.9 mmol/L (0.7-2.1)
[2020-10-02 06:22] LABS: Add Manual Diff / Slide Review NO; Basophils Absolute Auto 0 /uL (0-100); Eosinophils Absolute Auto 0 /uL (0-450); Eosinophils Percent Auto 0.1 % (2-4); Hemoglobin 10.9 g/dL (12.0-16.0); Lymphocytes Absolute Auto 700 /uL (1100-4500); Lymphocytes Percent Auto 5.4 % (25-40); Mean Corpuscular Hemoglobin 29.3 PG (26-34); Mean Corpuscular Volume 86.1 fL (80-100); Monocytes Absolute Auto 700 /uL (0-900); Monocytes Percent Auto 5.7 % (3-14); Neutrophils Absolute Auto 10700 /uL (1500-7000); Neutrophils Percent Auto 88.8 % (50-75); Red Blood Cell Count 3.72 X10^6/uL (4.0-5.2)
[2020-10-02 06:43] LABS: Platelet Count 244 X10^3/uL (150-400)
[2020-10-02] MEDS: SODIUM CHLORIDE 0.9% 1,000 ML 250 ML IV ×2 (06:56→14:44)
[2020-10-02 07:00] VITALS: BP 185/84; PULSE 88; RESP 19; TEMP 37.2; O2SAT 95
[2020-10-02 07:42] LABS: Lactate (Lactic Acid) 0.6 mmol/L (0.7-2.1)
[2020-10-02] MEDS: PANTOPRAZOLE 40 MG VIAL IV (09:42)
[2020-10-02] MEDS: ENOXAPARIN 40 MG/0.4 ML SYRINGE SUBCUT (09:42)
[2020-10-02] MEDS: lisinopriL 20 MG TABLET PO (09:42)
[2020-10-02] MEDS: DOCUSATE 100 MG CAPSULE PO ×2 (09:42→21:08)
[2020-10-02] MEDS: atenoloL 50 MG TABLET PO ×2 (09:42→21:08)
[2020-10-02 11:00] VITALS: BP 187/77; PULSE 78; RESP 15; TEMP 36.6; O2SAT 92
--- NOTE | 2020-10-02 13:30 | PC.NURSE ---
Assess- Patient is feeling better today, she has not requested any iv pain medication. She is on clear liquids and tolerating well. BT are hypoactive, labs are looking better. Patient has ivf and this has been decreased to 125cc/hr. Up to the commode this morning and voided 500cc of yellow urine. Son into see patient at the frontend engineer, their was some confusion who was the support person. It will be Won Lamb who is the patients live in significant other. Son states that he is the POA of patient, we did not have paper work that showed this. Patient has decided that she would perfer Won to get updates on patient, her son did call her and talk with her.
[2020-10-02] MEDS: PIPERACILLIN-TAZO 3.375 GM/50 ML FROZ.PIGGY IV ×3 (13:38→23:43)
[2020-10-02] MEDS: ONDANSETRON 4 MG/2 ML INJ IV (14:29)
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
[2020-10-02 15:25] VITALS: BP 185/76; PULSE 70; RESP 16; TEMP 37.1; O2SAT 96
[2020-10-02 16:41] LABS: BUN Creatinine Ratio 22.4 (6-22); Blood Urea Nitrogen 11 mg/dL (7-17); Calcium 8.2 mg/dL (8.4-10.2); Carbon Dioxide 22 mmol/L (22-32); Chloride 107 mmol/L (98-107); Estimated Glomerular Filt Rate > 60.0 mL/min (>60); Glucose 94 mg/dL (80-110); HEMOLYSIS < 15 (0-50); Potassium 3.4 mmol/L (3.4-5.1); Sodium 137 mmol/L (137-145)
--- NOTE | 2020-10-02 17:00 | P.PN_ITS ---
Subjective Subjective Date Patient Seen: 10/02/20 Time Patient Seen: 08:00 Interval history: Today she feels her pain is improving. She still has intermittent nausea but that is improving also. Overnight her blood cultures grew gram negative bacilli and she was started on zosyn. Exam Vital Signs (past 8 hours): - 10/02/20 11:00 10/02/20 15:25 Temperature 97.8 F 98.8 F Pulse Rate 78 70 Respiratory Rate 15 16 Blood Pressure 187/77 H 185/76 H Pulse Oximetry 92 96 Oxygen Delivery Method Room Air Oxygen Flow Rate 0 Narrative Exam Narrative: GENERAL-thin elderly female, no acute distress HEENT-no scleral icterus, hearing intact, dry mucous membranes NECK-no JVD, trachea midline CVS- regular rate, no peripheral edema RESP-unlabored respiratory effort, no audible wheezing GI-tender to palpation around the umbilicus. No peritonitis. MSK-no cyanosis or clubbing, extremities without deformity SKIN-warm, dry NEURO-alert and oriented, no focal deficits PYSCH-Appropriate mood and affect Objective Labs Result Diagrams: 10/02/20 05:30 10/02/20 05:30 Labs: Laboratory Results - last 24 hr 10/01/20 10/01/20 10/01/20 04:43 15:01 17:14 WBC RBC Hgb Hct MCV MCH MCHC RDW Plt Count Neut % (Auto) Lymph % (Auto) [place] % (Auto) Eos % (Auto) Baso % (Auto) Neut # (Auto) Lymph # (Auto) [place] # (Auto) Eos # (Auto) Baso # (Auto) PT INR Sodium 136 L Potassium 3.3 L Chloride 105 Carbon Dioxide 24 BUN 11 Creatinine 0.52 Estimated GFR > 60.0 BUN/Creatinine Ratio 21.2 Glucose 129 H Lactate Calcium 8.1 L Magnesium Total Bilirubin Conjugated Bilirubin Unconjugated Bilirubin AST ALT Alkaline Phosphatase Troponin I 0.064 H Total Protein Albumin Globulin Albumin/Globulin Ratio A. baumannii (PCR) Not detected Nichole albicans (PCR) Not detected C. glabrata (PCR) Not detected C. krusei (PCR) Not detected C. parapsilosis (PCR) Not detected C. tropicalis (PCR) Not detected Enterobacteriac sp PCR Not detected E. cloacae complex PCR Not detected Enterococcus sp PCR Not detected E. coli (PCR) Not detected H. influenzae (PCR) Not detected Klebsiella oxytoca PCR Not detected Klebsiella pneumoniae Not detected List. monocytogenes PCR Not detected N. meningitidis (PCR) Not detected Proteus species (PCR) Not detected Serratia marcescens PCR Not detected Staphylococcus sp PCR Not detected Staph aureus (PCR) Not detected mecA-Methicil Res Gene Not Reportable Streptococcus sp PCR Not detected Group A Strep (PCR) Not detected Strep agalactiae (PCR) Not detected Strep pneumoniae (PCR) Not detected P. aeruginosa (PCR) Not detected Lonny/B-Vanco Res Genes Not Reportable KPC-Carbap Res Gene PCR Not Reportable 10/01/20 10/02/20 10/02/20 17:14 05:30 05:30 WBC 14.9 H 12.0 H RBC 3.91 L 3.72 L Hgb 11.4 L 10.9 L Hct 33.5 L 32.0 L MCV 85.8 86.1 MCH 29.1 29.3 MCHC 33.9 34.0 RDW 12.5 13.0 Plt Count 255 244 Neut % (Auto) 88.8 H Lymph % (Auto) 5.4 L [place] % (Auto) 5.7 Eos % (Auto) 0.1 L Baso % (Auto) 0.0 Neut # (Auto) 62216 H Lymph # (Auto) 700 L [place] # (Auto) 700 Eos # (Auto) 0 Baso # (Auto) 0 PT INR Sodium Potassium Chloride Carbon Dioxide BUN Creatinine Estimated GFR BUN/Creatinine Ratio Glucose Lactate Calcium Cancelled Magnesium 1.9 Total Bilirubin Conjugated Bilirubin Unconjugated Bilirubin AST ALT Alkaline Phosphatase Troponin I Total Protein Albumin Globulin Albumin/Globulin Ratio A. baumannii (PCR) Nichole albicans (PCR) C. glabrata (PCR) C. krusei (PCR) C. parapsilosis (PCR) C. tropicalis (PCR) Enterobacteriac sp PCR E. cloacae complex PCR Enterococcus sp PCR E. coli (PCR) H. influenzae (PCR) Klebsiella oxytoca PCR Klebsiella pneumoniae List. monocytogenes PCR N. meningitidis (PCR) Proteus species (PCR) Serratia marcescens PCR Staphylococcus sp PCR Staph aureus (PCR) mecA-Methicil Res Gene Streptococcus sp PCR Group A Strep (PCR) Strep agalactiae (PCR) Strep pneumoniae (PCR) P. aeruginosa (PCR) Lonny/B-Vanco Res Genes KPC-Carbap Res Gene PCR 10/02/20 10/02/20 10/02/20 05:30 05:30 05:30 WBC RBC Hgb Hct MCV MCH MCHC RDW Plt Count Neut % (Auto) Lymph % (Auto) [place] % (Auto) Eos % (Auto) Baso % (Auto) Neut # (Auto) Lymph # (Auto) [place] # (Auto) Eos # (Auto) Baso # (Auto) PT 14.8 H INR 1.3 Sodium 137 Potassium 3.4 Chloride 107 Carbon Dioxide 22 BUN 11 Creatinine 0.49 L Estimated GFR > 60.0 BUN/Creatinine Ratio 22.4 H Glucose 94 Lactate Calcium 8.2 L Magnesium Total Bilirubin 2.2 H Conjugated Bilirubin 0.7 H Unconjugated Bilirubin 0.9 AST 477 H ALT 299 H Alkaline Phosphatase 186 H D Troponin I Total Protein 5.8 L Albumin 3.0 L Globulin 2.8 Albumin/Globulin Ratio 1.1 A. baumannii (PCR) Nichole albicans (PCR) C. glabrata (PCR) C. krusei (PCR) C. parapsilosis (PCR) C. tropicalis (PCR) Enterobacteriac sp PCR E. cloacae complex PCR Enterococcus sp PCR E. coli (PCR) H. influenzae (PCR) Klebsiella oxytoca PCR Klebsiella pneumoniae List. monocytogenes PCR N. meningitidis (PCR) Proteus species (PCR) Serratia marcescens PCR Staphylococcus sp PCR Staph aureus (PCR) mecA-Methicil Res Gene Streptococcus sp PCR Group A Strep (PCR) Strep agalactiae (PCR) Strep pneumoniae (PCR) P. aeruginosa (PCR) Lonny/B-Vanco Res Genes KPC-Carbap Res Gene PCR 10/02/20 10/02/20 10/02/20 05:30 07:23 15:06 WBC RBC Hgb Hct MCV MCH MCHC RDW Plt Count Neut % (Auto) Lymph % (Auto) [place] % (Auto) Eos % (Auto) Baso % (Auto) Neut # (Auto) Lymph # (Auto) [place] # (Auto) Eos # (Auto) Baso # (Auto) PT INR Sodium Potassium Chloride Carbon Dioxide BUN Creatinine Estimated GFR BUN/Creatinine Ratio Glucose Lactate 0.9 0.6 L Calcium Magnesium 2.0 Total Bilirubin Conjugated Bilirubin Unconjugated Bilirubin AST ALT Alkaline Phosphatase Troponin I Total Protein Albumin Globulin Albumin/Globulin Ratio A. baumannii (PCR) Nichole albicans (PCR) C. glabrata (PCR) C. krusei (PCR) C. parapsilosis (PCR) C. tropicalis (PCR) Enterobacteriac sp PCR E. cloacae complex PCR Enterococcus sp PCR E. coli (PCR) H. influenzae (PCR) Klebsiella oxytoca PCR Klebsiella pneumoniae List. monocytogenes PCR N. meningitidis (PCR) Proteus species (PCR) Serratia marcescens PCR Staphylococcus sp PCR Staph aureus (PCR) mecA-Methicil Res Gene Streptococcus sp PCR Group A Strep (PCR) Strep agalactiae (PCR) Strep pneumoniae (PCR) P. aeruginosa (PCR) Lonny/B-Vanco Res Genes KPC-Carbap Res Gene PCR PFSH Medical History Acute pancreatitis Chronic low back pain Coronary artery disease Essential hypertension (12/22/15) Hair loss Hyperlipemia Hypertension Insomnia Low back pain (12/22/15) Osteopenia Osteoporosis (02/04/15) Palpitations Paroxysmal supraventricular tachycardia Pure hypercholesterolemia (12/22/15) Surgical History History of colon surgery Hx of cholecystectomy Hx of hysterectomy (1972) Family History Father No problems noted. Mother No problems noted. Social History household members: significant other Smoking Status: Former smoker alcohol intake: current Assessment & Plan Assessment & Plan narrative: 80W with PMH pancreatitis, hypertension, CAD, hyperlipidemia, vertigo, osteoporosis, chronic low back pain, and anxiety who comes in with significant epigastric pain, nausea, and vomiting, with elevated lipase concerning for acute pancreatitis found to have gram negative rods in blood 1. Bacteremia -gram negative rods growing in blood -etiology likely from abdomen given abdominal pain -currently on zosyn awaiting further speciation -WBC improving from 14.9 to 12.0 2. Probable acute pancreatitis -lipase elevated to 800s -CT shows large duodenal diverticulum contatining air/fluid level but no evidence of inflammation that is distant from expected position of CBD insertion, normal appearing pancreas -MRCP returned unremarkable -IVF at 125cc/hr for pancreatitis -IV dilaudid q3 hr, with PRN zofran IV for symptoms -advance diet to clears -appreciate surgery consult -monitor electrolytes frequently 3. Transaminitis -has elevated bilirubin, AST/ALT, and alk phos -continuing to rise from admission -hepatitis serologies pending -imaging with CT and MRCP has not shown acute process -continue to trend daily 3. Hypertension, acute on chronic, uncontrolled, present on admission. -hold oral medications for now 4. Hyperlipidemia, chronic, present on admission. Stable. -hold patient's Atrovastatin 4. Anxiety, generalized, not present on admission -hold patient's amitriptyline
[2020-10-02 17:31] LABS: Hepatitis B Surface Antigen NEGATIVE s/c (NEGATIVE)
--- NOTE | 2020-10-02 17:50 | PC.NURSE ---
Shift note: Notified hospitalist that patient stated to this RN I just want to . Patient is withdrawn with flat affect. Refusing to eat clear liquids tray.
[2020-10-02 19:46] VITALS: BP 163/65; PULSE 70; RESP 18; TEMP 37.1; O2SAT 95
[2020-10-02] MEDS: LORazepam 0.5 MG TABLET PO (21:08)
[2020-10-02] MEDS: ESCITALOPRAM 10 MG TABLET PO (21:08)
[2020-10-02] MEDS: SENNOSIDES 8.6 MG TABLET 17.2 MG PO (21:09)
[2020-10-02] MEDS: AMITRIPTYLINE 25 MG TABLET 50 MG PO (21:09)
[2020-10-02 22:35] LABS: Hepatitis A Antibody Total Positive (Negative)
[2020-10-02 23:55] VITALS: BP 103/64; PULSE 74; RESP 18; TEMP 37.1; O2SAT 96
[2020-10-03] VITALS (8 sets, daily range): BP systolic 129–198; BP diastolic 68–95; PULSE 58–71; RESP 14–18; TEMP 36.2–37.9; O2SAT 95–97
[2020-10-03 02:36] LABS: Hepatitis B Surf Ab Qualitativ Non Reactive (.)
[2020-10-03] MEDS: SODIUM CHLORIDE 0.9% 1,000 ML 125 ML IV ×3 (03:30→21:59)
--- NOTE | 2020-10-03 04:19 | PC.NURSE ---
Pt. incontinent of bowel & bladder, total bed changed done. Very sleepy, but answers to question. Asked if she's okay she said yes. KASHIF Springer notified, will cont. POC & monitor.
[2020-10-03 04:36] LABS: Hepatitis B Core Antibody Negative (Negative)
[2020-10-03 05:38] LABS: Add Manual Diff / Slide Review NO; Basophils Absolute Auto 0 /uL (0-100); Basophils Percent Auto 0.1 % (0-2); Eosinophils Absolute Auto 0 /uL (0-450); Eosinophils Percent Auto 0.5 % (2-4); Hematocrit 32.1 % (36-46); Lymphocytes Absolute Auto 800 /uL (1100-4500); Lymphocytes Percent Auto 9.2 % (25-40); Mean Corpuscular HGB Conc 34.2 % (30-36); Mean Corpuscular Hemoglobin 29.2 PG (26-34); Mean Corpuscular Volume 85.4 fL (80-100); Monocytes Absolute Auto 700 /uL (0-900); Monocytes Percent Auto 8.1 % (3-14); Neutrophils Absolute Auto 7300 /uL (1500-7000); Neutrophils Percent Auto 82.1 % (50-75); Platelet Count 265 X10^3/uL (150-400); Red Blood Cell Count 3.76 X10^6/uL (4.0-5.2); Red Cell Distribution Width 12.8 % (11.6-14.8); White Blood Cell Count 8.9 X10^3/uL (4.5-11.0)
[2020-10-03] MEDS: PIPERACILLIN-TAZO 3.375 GM/50 ML FROZ.PIGGY IV ×2 (05:40→11:43)
[2020-10-03 05:44] LABS: Alanine Aminotransferase 267 IU/L (<35); Albumin 2.9 g/dL (3.5-5.0); Albumin Globulin Ratio 1.1 (1.0-2.8); Alkaline Phosphatase 215 U/L (38-126); Aspartate Aminotransferase 289 IU/L (14-36); Bilirubin Total 0.8 mg/dL (0.2-1.3); Bilirubin Unconjugated 0.7 mg/dL (0.0-1.1); Globulin 2.6 g/dL (1.7-4.1); HEMOLYSIS 22 (0-50); Total Protein 5.5 g/dL (6.3-8.2)
[2020-10-03 05:45] LABS: BUN Creatinine Ratio 23.9 (6-22); Blood Urea Nitrogen 11 mg/dL (7-17); Calcium 8.2 mg/dL (8.4-10.2); Carbon Dioxide 26 mmol/L (22-32); Chloride 105 mmol/L (98-107); Estimated Glomerular Filt Rate > 60.0 mL/min (>60); Glucose 100 mg/dL (80-110); HEMOLYSIS 22 (0-50); Potassium 2.8 mmol/L (3.4-5.1); Sodium 137 mmol/L (137-145)
[2020-10-03] MEDS: POTASSIUM CHLORIDE 40 MEQ in SODIUM CHLORIDE 0.9% 500 ML 130 ML IV (06:31)
--- NOTE | 2020-10-03 06:51 | PC.NURSE ---
KASHIF Springer notified pt. had liquid greenish stools x4, will report to day RN.
[2020-10-03] MEDS: PANTOPRAZOLE 40 MG VIAL IV (08:07)
[2020-10-03] MEDS: ENOXAPARIN 40 MG/0.4 ML SYRINGE SUBCUT (08:12)
[2020-10-03] MEDS: atenoloL 50 MG TABLET PO ×2 (08:12→21:31)
[2020-10-03] MEDS: POTASSIUM CHLORIDE 20 MEQ TAB 40 MEQ PO (08:12)
[2020-10-03] MEDS: ESCITALOPRAM 10 MG TABLET PO (08:13)
[2020-10-03] MEDS: lisinopriL 20 MG TABLET PO (08:13)
--- NOTE | 2020-10-03 09:02 | PC.NURSE ---
Patient has had a couple of loose stools that are black in color this morning. She has been changed. Dr. Levine is aware and ordered a stool sample for cdiff, she has not went since this has been ordered and the last sample was too small. Patient denies pain and is resting now. A new iv has been started to her l.upper arm and her potassium is infusing without any difficulties.
--- NOTE | 2020-10-03 10:13 | PC.NURSE ---
Addendum entered by Gabrielle Ventura R.N. 10/03/20 12:04: Patients stool sample sent to lab. Addendum entered by Gabrielle Ventura R.N. 10/03/20 11:29: Hope from lab called with critical report on bacteria growing in her blood, which was Vibrio Chollerae and doctor is aware. Original Note: Assess- Patient has a new iv to her l.upper arm. Hope called from Lab and patient is growing Vibrio Chollerae in her blood, Dr. Levine is having them run this again to be sure. She has had some loose stools that are guiaccing + for blood. is aware but patient also had some bowel meds yesterday and last night. She is comfortabl right now and has been put on isolation, specifically enteric precautions. Patient is resting now and denies pain . She is on a full liquid diet.
[2020-10-03] MEDS: AZITHROMYCIN 250 MG TABLET 1000 MG PO (11:44)
[2020-10-03 12:16] LABS: Clostridium Difficile Tox PCR Negative for C. diff
[2020-10-03] MEDS: LORazepam 0.5 MG TABLET PO (12:51)
[2020-10-03] MEDS: CEFTRIAXONE 1 GM/50 ML FROZ.PIGGY IV (12:52)
[2020-10-03 13:00] LABS: Campylobacter Not Detected (Not Detect); Clostridium difficile toxin AB Not Detected (Not Detect); Plesiomonsa shigelloides Not Detected (Not Detect); Salmonella Not Detected (Not Detect); Vibrio Detected (Not Detect)
[2020-10-03 13:01] LABS: Adenovirus F 40/41 Not Detected (Not Detect); Astrovirus Not Detected (Not Detect); Cryptosporidium Not Detected (Not Detect); Cyclospora cayetanensis Not Detected (Not Detect); Entamoeba histolytica Not Detected (Not Detect); Enteroaggregative E.coli Not Detected (Not Detect); Enteropathogenic E.coli Not Detected (Not Detect); Enterotoxigenic E.coli It/st Not Detected (Not Detect); Giardia lamblia Not Detected (Not Detect); Norovirus GI/GII Not Detected (Not Detect); Rotavirus A Not Detected (Not Detect); Sapovirus Not Detected (Not Detect); Shiga-like toxin-prod E.coli Not Detected (Not Detect); Shigella/Enteroinvasive E.coli Not Detected (Not Detect); Vibrio cholerae Detected (Not Detect); Yersinia enterocolitica Not Detected (Not Detect)
[2020-10-03 13:36] LABS: HEMOLYSIS < 15 (0-50); Potassium 3.4 mmol/L (3.4-5.1)
[2020-10-03] MEDS: CIPROFLOXACIN 400 MG/200 ML PIGGYBACK 200 MG IV (14:15)
--- NOTE | 2020-10-03 14:21 | PM.PN.1 ---
Subjective Subjective Date Patient Seen: 10/03/20 Time Patient Seen: 08:21 Interval history: Overnight patient started having significant amounts of watery stool. Otherwise she denies pain today. Has intermittent nausea. Exam Vital Signs (past 8 hours): - 10/03/20 07:41 10/03/20 08:13 10/03/20 12:11 Temperature 98.3 F Pulse Rate 62 63 71 Respiratory Rate 14 Blood Pressure 194/68 H 194/68 H 187/75 H Pulse Oximetry 96 Oxygen Delivery Method Room Air Oxygen Flow Rate 0 Narrative Exam Narrative: GENERAL-thin elderly female, no acute distress HEENT-no scleral icterus, hearing intact, dry mucous membranes NECK-no JVD, trachea midline CVS- regular rate, no peripheral edema RESP-unlabored respiratory effort, no audible wheezing GI-tender to palpation around the umbilicus. No peritonitis. MSK-no cyanosis or clubbing, extremities without deformity SKIN-warm, dry NEURO-alert and oriented, no focal deficits PYSCH-depressed mood Objective Labs Result Diagrams: 10/03/20 05:10 10/03/20 13:18 Labs: Laboratory Results - last 24 hr 10/02/20 10/02/20 10/02/20 05:30 05:30 05:30 WBC RBC Hgb Hct MCV MCH MCHC RDW Plt Count Neut % (Auto) Lymph % (Auto) [place] % (Auto) Eos % (Auto) Baso % (Auto) Neut # (Auto) Lymph # (Auto) [place] # (Auto) Eos # (Auto) Baso # (Auto) Sodium 137 Potassium 3.4 Chloride 107 Carbon Dioxide 22 BUN 11 Creatinine 0.49 L Estimated GFR > 60.0 BUN/Creatinine Ratio 22.4 H Glucose 94 Calcium 8.2 L Magnesium Total Bilirubin Conjugated Bilirubin Unconjugated Bilirubin AST ALT Alkaline Phosphatase Total Protein Albumin Globulin Albumin/Globulin Ratio Stl C. cayetanensis PCR Stool Rotavirus (PCR) Stool Adenovirus (PCR) Stool Astrovirus (PCR) Stool Cryptosporidium PCR Stl E.coli Shiga Tox PCR St Sh/Enteroin Ecoli PCR Stool E coli O157 PCR Stl Enterotoxigenic E PCR Stool EPEC (PCR) Stl E. histolytica PCR Stool Giardia Lamblia PCR Stool Sapovirus (PCR) Stl P. shigelloides PCR St Y.enterocolitica PCR Stool Vibrio (PCR) Stl Vibrio cholerae PCR Stl Enteroaggr Ecoli PCR Stl Norovirus GI/GII PCR Campylobacter (PCR) C. difficile Tox (PCR) Hepatitis A Ab Total Positive A Hep Bs Antigen Hep Bs Antibody Hep B Core Total Ab Negative Salmonella (PCR) 10/02/20 10/02/20 10/02/20 05:30 05:30 15:06 WBC RBC Hgb Hct MCV MCH MCHC RDW Plt Count Neut % (Auto) Lymph % (Auto) [place] % (Auto) Eos % (Auto) Baso % (Auto) Neut # (Auto) Lymph # (Auto) [place] # (Auto) Eos # (Auto) Baso # (Auto) Sodium Potassium Chloride Carbon Dioxide BUN Creatinine Estimated GFR BUN/Creatinine Ratio Glucose Calcium Magnesium 2.0 Total Bilirubin Conjugated Bilirubin Unconjugated Bilirubin AST ALT Alkaline Phosphatase Total Protein Albumin Globulin Albumin/Globulin Ratio Stl C. cayetanensis PCR Stool Rotavirus (PCR) Stool Adenovirus (PCR) Stool Astrovirus (PCR) Stool Cryptosporidium PCR Stl E.coli Shiga Tox PCR St Sh/Enteroin Ecoli PCR Stool E coli O157 PCR Stl Enterotoxigenic E PCR Stool EPEC (PCR) Stl E. histolytica PCR Stool Giardia Lamblia PCR Stool Sapovirus (PCR) Stl P. shigelloides PCR St Y.enterocolitica PCR Stool Vibrio (PCR) Stl Vibrio cholerae PCR Stl Enteroaggr Ecoli PCR Stl Norovirus GI/GII PCR Campylobacter (PCR) C. difficile Tox (PCR) Hepatitis A Ab Total Hep Bs Antigen Negative Hep Bs Antibody Non reactive Hep B Core Total Ab Salmonella (PCR) 10/03/20 10/03/20 10/03/20 05:10 05:10 05:10 WBC 8.9 RBC 3.76 L Hgb 11.0 L Hct 32.1 L MCV 85.4 MCH 29.2 MCHC 34.2 RDW 12.8 Plt Count 265 Neut % (Auto) 82.1 H Lymph % (Auto) 9.2 L [place] % (Auto) 8.1 Eos % (Auto) 0.5 L Baso % (Auto) 0.1 Neut # (Auto) 7300 H Lymph # (Auto) 800 L [place] # (Auto) 700 Eos # (Auto) 0 Baso # (Auto) 0 Sodium 137 Potassium 2.8 L Chloride 105 Carbon Dioxide 26 BUN 11 Creatinine 0.46 L Estimated GFR > 60.0 BUN/Creatinine Ratio 23.9 H Glucose 100 Calcium 8.2 L Magnesium Total Bilirubin 0.8 Conjugated Bilirubin 0.0 Unconjugated Bilirubin 0.7 AST 289 H ALT 267 H Alkaline Phosphatase 215 H Total Protein 5.5 L Albumin 2.9 L Globulin 2.6 Albumin/Globulin Ratio 1.1 Stl C. cayetanensis PCR Stool Rotavirus (PCR) Stool Adenovirus (PCR) Stool Astrovirus (PCR) Stool Cryptosporidium PCR Stl E.coli Shiga Tox PCR St Sh/Enteroin Ecoli PCR Stool E coli O157 PCR Stl Enterotoxigenic E PCR Stool EPEC (PCR) Stl E. histolytica PCR Stool Giardia Lamblia PCR Stool Sapovirus (PCR) Stl P. shigelloides PCR St Y.enterocolitica PCR Stool Vibrio (PCR) Stl Vibrio cholerae PCR Stl Enteroaggr Ecoli PCR Stl Norovirus GI/GII PCR Campylobacter (PCR) C. difficile Tox (PCR) Hepatitis A Ab Total Hep Bs Antigen Hep Bs Antibody Hep B Core Total Ab Salmonella (PCR) 10/03/20 10/03/20 10/03/20 11:05 11:05 13:18 WBC RBC Hgb Hct MCV MCH MCHC RDW Plt Count Neut % (Auto) Lymph % (Auto) [place] % (Auto) Eos % (Auto) Baso % (Auto) Neut # (Auto) Lymph # (Auto) [place] # (Auto) Eos # (Auto) Baso # (Auto) Sodium Potassium 3.4 Chloride Carbon Dioxide BUN Creatinine Estimated GFR BUN/Creatinine Ratio Glucose Calcium Magnesium Total Bilirubin Conjugated Bilirubin Unconjugated Bilirubin AST ALT Alkaline Phosphatase Total Protein Albumin Globulin Albumin/Globulin Ratio Stl C. cayetanensis PCR Not detected Stool Rotavirus (PCR) Not detected Stool Adenovirus (PCR) Not detected Stool Astrovirus (PCR) Not detected Stool Cryptosporidium PCR Not detected Stl E.coli Shiga Tox PCR Not detected St Sh/Enteroin Ecoli PCR Not detected Stool E coli O157 PCR Not detected Stl Enterotoxigenic E PCR Not detected Stool EPEC (PCR) Not detected Stl E. histolytica PCR Not detected Stool Giardia Lamblia PCR Not detected Stool Sapovirus (PCR) Not detected Stl P. shigelloides PCR Not detected St Y.enterocolitica PCR Not detected Stool Vibrio (PCR) Detected H Stl Vibrio cholerae PCR Detected H Stl Enteroaggr Ecoli PCR Not detected Stl Norovirus GI/GII PCR Not detected Campylobacter (PCR) Not detected C. difficile Tox (PCR) Negative for c. diff Not detected Hepatitis A Ab Total Hep Bs Antigen Hep Bs Antibody Hep B Core Total Ab Salmonella (PCR) Not detected PFSH Medical History Acute pancreatitis Chronic low back pain Coronary artery disease Essential hypertension (12/22/15) Hair loss Hyperlipemia Hypertension Insomnia Low back pain (12/22/15) Osteopenia Osteoporosis (02/04/15) Palpitations Paroxysmal supraventricular tachycardia Pure hypercholesterolemia (12/22/15) Surgical History History of colon surgery Hx of cholecystectomy Hx of hysterectomy (1972) Family History Father No problems noted. Mother No problems noted. Social History household members: significant other Smoking Status: Former smoker alcohol intake: current Assessment & Plan Assessment & Plan narrative: 80W with PMH pancreatitis, hypertension, CAD, hyperlipidemia, vertigo, osteoporosis, chronic low back pain, and anxiety who comes in with significant epigastric pain, nausea, and vomiting, developed significant diarrhea found to have vibrio cholera bacteremia and gastroenteritis. 1. Vibrio cholera bacteremia and gastroenteritis -etiology unclear, no recent travel for patient -switched patient to doxycycline and ciprofloxacin, awaiting sensitivities -Vibrio cholera confirmed PCR in stool -plan for at least 2 weeks antibiotics -IV fluids for significant diarrhea to keep euvolemic -plan for PICC placement for termination clerk antibiotics -contact precautions -holding lovenox for guiaiac positive stools 2. Transaminitis -has elevated bilirubin, AST/ALT, and alk phos -now downtrending -hepatitis serologies pending -imaging with CT and MRCP has not shown acute process -continue to trend daily 3. Hypertension, acute on chronic, uncontrolled, present on admission. -continue atenolol and lisinopril 4. Hyperlipidemia, chronic, present on admission. Stable. -hold patient's Atorvastatin 4. Anxiety and depression, generalized, not present on admission -continue patient's amitriptyline -ssri started IVF: continue IVF 125cc/hr DVT ppx: SCDs Diet: regular diet Code status: DNR, significant other Won Meyer Time Spent With Patient Time with patient: 15-24 minutes
[2020-10-03] MEDS: DOXYCYCLINE 100 MG in SODIUM CHLORIDE 0.9% 100 ML IV (15:54)
[2020-10-03] MEDS: AMITRIPTYLINE 25 MG TABLET 50 MG PO (21:32)
[2020-10-04] VITALS (8 sets, daily range): BP systolic 144–193; BP diastolic 52–73; PULSE 54–69; RESP 16–18; TEMP 36.3–37.5; O2SAT 95–99
[2020-10-04] MEDS: SODIUM CHLORIDE 0.9% 1,000 ML 250 ML IV (02:12)
[2020-10-04] MEDS: CIPROFLOXACIN 400 MG/200 ML PIGGYBACK 200 MG IV ×2 (02:12→13:50)
[2020-10-04] MEDS: DOXYCYCLINE 100 MG in SODIUM CHLORIDE 0.9% 100 ML IV ×2 (03:23→15:53)
[2020-10-04 04:33] LABS: Hematocrit 30.4 % (36-46); Hemoglobin 10.4 g/dL (12.0-16.0); Mean Corpuscular HGB Conc 34.2 % (30-36); Mean Corpuscular Hemoglobin 29.3 PG (26-34); Mean Corpuscular Volume 85.7 fL (80-100); Platelet Count 276 X10^3/uL (150-400); Red Blood Cell Count 3.55 X10^6/uL (4.0-5.2); Red Cell Distribution Width 12.5 % (11.6-14.8); White Blood Cell Count 7.9 X10^3/uL (4.5-11.0)
[2020-10-04 04:53] LABS: Calcium 8.1 mg/dL (8.4-10.2); Magnesium 1.8 mg/dL (1.6-2.3)
[2020-10-04 04:54] LABS: Alanine Aminotransferase 184 IU/L (<35); Albumin 2.8 g/dL (3.5-5.0); Albumin Globulin Ratio 1.1 (1.0-2.8); Alkaline Phosphatase 188 U/L (38-126); Aspartate Aminotransferase 116 IU/L (14-36); Bilirubin Total 0.4 mg/dL (0.2-1.3); Bilirubin Unconjugated 0.3 mg/dL (0.0-1.1); Globulin 2.5 g/dL (1.7-4.1); HEMOLYSIS < 15 (0-50); Total Protein 5.3 g/dL (6.3-8.2)
[2020-10-04 04:55] LABS: BUN Creatinine Ratio 12.8 (6-22); Blood Urea Nitrogen 6 mg/dL (7-17); Calcium 8.1 mg/dL (8.4-10.2); Carbon Dioxide 25 mmol/L (22-32); Chloride 107 mmol/L (98-107); Estimated Glomerular Filt Rate > 60.0 mL/min (>60); Glucose 94 mg/dL (80-110); HEMOLYSIS < 15 (0-50); Potassium 2.8 mmol/L (3.4-5.1); Sodium 138 mmol/L (137-145)
[2020-10-04] MEDS: POTASSIUM CHLORIDE 40 MEQ in SODIUM CHLORIDE 0.9% 500 ML 130 ML IV (05:47)
[2020-10-04] MEDS: AMLODIPINE 5 MG TABLET PO (08:36)
[2020-10-04] MEDS: ESCITALOPRAM 10 MG TABLET PO (08:36)
[2020-10-04] MEDS: atenoloL 50 MG TABLET PO ×2 (08:36→20:49)
[2020-10-04] MEDS: lisinopriL 20 MG TABLET 40 MG PO (08:38)
[2020-10-04] MEDS: POTASSIUM CHLORIDE 20 MEQ TAB 40 MEQ PO (08:44)
--- NOTE | 2020-10-04 10:40 | PC.NURSE ---
Addendum entered by Librado Hernandez R.N. 10/04/20 14:34: Pt up to shower. Abx continue. Pt restfull. offers no overt distress though can tell by facial expression she is weary of this. Original Note: Pt alert oriented. Offers no overt complaint other than being a bit uncomfortable. Makes needs known easily. Tends to sleep when not disturbed. three explosive stools since b'fast.
[2020-10-04] MEDS: MAGNESIUM SULFATE 2 GM/50 ML PIGGYBACK IV (11:45)
--- NOTE | 2020-10-04 13:06 | P.PN_ITS ---
Subjective Subjective Date Patient Seen: 10/04/20 Time Patient Seen: 08:06 Interval history: This morning she said she had been feeling better. Her abdominal pain had improved, her nausea resolved. She said she had not had diarrhea since last night. She ate breakfast after this and began having significant diarrhea. Exam Vital Signs (past 8 hours): - 10/04/20 08:00 10/04/20 08:38 10/04/20 12:00 Temperature 98.8 F 98.8 F Pulse Rate 63 63 69 Respiratory Rate 17 17 Blood Pressure 190/72 H 190/72 H 155/65 H Pulse Oximetry 97 97 Oxygen Delivery Method Room Air Oxygen Flow Rate 0 Narrative Exam Narrative: GENERAL-thin elderly female, no acute distress HEENT-no scleral icterus, hearing intact, moist mucous membranes NECK-no JVD, trachea midline CVS- regular rate, no peripheral edema RESP-unlabored respiratory effort, no audible wheezing GI-tender to palpation around the umbilicus. No peritonitis. MSK-no cyanosis or clubbing, extremities without deformity SKIN-warm, dry NEURO-alert and oriented, no focal deficits PYSCH-depressed mood Objective Labs Result Diagrams: 10/04/20 04:15 10/04/20 12:55 Labs: Laboratory Results - last 24 hr 10/03/20 10/04/20 10/04/20 13:18 04:15 04:15 WBC 7.9 RBC 3.55 L Hgb 10.4 L Hct 30.4 L MCV 85.7 MCH 29.3 MCHC 34.2 RDW 12.5 Plt Count 276 Sodium Potassium 3.4 Chloride Carbon Dioxide BUN Creatinine Estimated GFR BUN/Creatinine Ratio Glucose Calcium Magnesium Total Bilirubin 0.4 Conjugated Bilirubin 0.0 Unconjugated Bilirubin 0.3 AST 116 H ALT 184 H Alkaline Phosphatase 188 H Total Protein 5.3 L Albumin 2.8 L Globulin 2.5 Albumin/Globulin Ratio 1.1 10/04/20 10/04/20 04:15 04:15 WBC RBC Hgb Hct MCV MCH MCHC RDW Plt Count Sodium 138 Potassium 2.8 L Chloride 107 Carbon Dioxide 25 BUN 6 L Creatinine 0.47 L Estimated GFR > 60.0 BUN/Creatinine Ratio 12.8 Glucose 94 Calcium 8.1 L 8.1 L Magnesium 1.8 Total Bilirubin Conjugated Bilirubin Unconjugated Bilirubin AST ALT Alkaline Phosphatase Total Protein Albumin Globulin Albumin/Globulin Ratio [facility] Medical History Acute pancreatitis Chronic low back pain Coronary artery disease Essential hypertension (12/22/15) Hair loss Hyperlipemia Hypertension Insomnia Low back pain (12/22/15) Osteopenia Osteoporosis (02/04/15) Palpitations Paroxysmal supraventricular tachycardia Pure hypercholesterolemia (12/22/15) Surgical History History of colon surgery Hx of cholecystectomy Hx of hysterectomy (1972) Family History Father No problems noted. Mother No problems noted. Social History household members: significant other Smoking Status: Former smoker alcohol intake: current Assessment & Plan Assessment & Plan narrative: 80W with PMH pancreatitis, hypertension, CAD, hyperlipidemia, vertigo, osteoporosis, chronic low back pain, and anxiety who comes in with significant epigastric pain, nausea, and vomiting, developed significant diarrhea found to have vibrio cholera bacteremia and gastroenteritis. 1. Vibrio cholera bacteremia and gastroenteritis -etiology unclear, no recent travel for patient, she ate shrimp at [employer] restaurant in [place] the day before symptoms started, she had smoked salmon two days before symptoms started -Vibrio cholera confirmed PCR in stool -switched patient to doxycycline and ciprofloxacin, awaiting sensitivities -information sent to state lab -plan for 2 weeks antibiotics after blood cultures clear -IV fluids for significant diarrhea to keep euvolemic -plan for PICC placement for retirement antibiotics -contact precautions 2. Anemia, acute -mild anemia -no need for transfusion -with guaiac positive stools likely from gastroenteritis from cholera -hold lovenox 2. Transaminitis -has elevated bilirubin, AST/ALT, and alk phos -now downtrending over multiple days -hepatitis serologies showed Igg positive hepatitis A -reflex hepatitis A Igm pending -imaging with CT and MRCP has not shown acute process -stop trending given improvement in symptoms 3. Hypertension, acute on chronic, uncontrolled, present on admission. -continue atenolol and lisinopril -added amlodipine, and increased lisinopril for continued elevated blood pressure 4. Hyperlipidemia, chronic, present on admission. Stable. -hold patient's Atorvastatin 4. Anxiety and depression, generalized, not present on admission -continue patient's amitriptyline -ssri started IVF: continue IVF 125cc/hr DVT ppx: SCDs Diet: regular diet Code status: DNR, significant other Won Meyer
[2020-10-04 13:10] LABS: HEMOLYSIS 27 (0-50); Potassium 3.7 mmol/L (3.4-5.1)
--- NOTE | 2020-10-04 14:37 | CM.DPC ---
DCP IV-Abx Planning: Per MD, pt continues to have difficulty tolerating her diet right now and still significant diarrhea which could likely continue for a while due to her Cholera dx. Pt has had a positive blood culture and once it returns negative is when her 2 week of IV-Abx course will begin and she will be ready for d/c. Pt currently getting Cipro and Doxi IV-Abx Q12, unclear if these medications may change closer to d/c. SW met bedside with pt and explained role and discussed that based on pt's current IV-Abx and dosing needs [facility] will not be able to accommodate these medications as the clinic is not open around the clock. SW discussed that her Medicare does not cover the cost of home infusion and it would be significantly expensive. SW discussed option of SNF for IV-Abx and pt reluctantly agrees to SNF if this is the only option at d/c. SW provided the SNF Choice list and currently her preference is [facility] but aware that [facility] cannot be her only preference. Pt agreeable with SNF referrals. SW discussed that if her IV-Abx changes and outpt clinic is an option, SW aware that this would be her preference of d/c to home with outpt clinic. Pt confirms that her son is leaving on vacation tomorrow to [place] and that her Sig Other and her do not have the best relationship and she does not feel that he can assist much at d/c. PASRR completed in anticipation of SNF. SW made referral to [facility], and they can accept pt on Cipro but the current Doxi is too expensive. They will continue to follow to see if IV-Abx can be changed closer to d/c. SW made referrals to [facility] and [facility] and faxed clinicals to review. Plan: SW to follow closely to determine final IV-Abx needed at d/c and SNF reviews of pt to determine if they can accept. SANDOR Aldrich
[2020-10-04] MEDS: AMITRIPTYLINE 25 MG TABLET 50 MG PO (20:50)
[2020-10-05] MEDS: CIPROFLOXACIN 400 MG/200 ML PIGGYBACK 200 MG IV ×2 (01:34→13:19)
[2020-10-05] MEDS: DOXYCYCLINE 100 MG in SODIUM CHLORIDE 0.9% 100 ML IV ×2 (02:58→14:57)
[2020-10-05 03:00] VITALS: BP 152/112; PULSE 56; RESP 14; TEMP 36.8; O2SAT 98
[2020-10-05 05:30] LABS: Hematocrit 28.9 % (36-46); Mean Corpuscular HGB Conc 34.5 % (30-36); Mean Corpuscular Hemoglobin 29.3 PG (26-34); Mean Corpuscular Volume 84.9 fL (80-100); Platelet Count 263 X10^3/uL (150-400); Red Blood Cell Count 3.41 X10^6/uL (4.0-5.2); Red Cell Distribution Width 12.7 % (11.6-14.8); White Blood Cell Count 7.7 X10^3/uL (4.5-11.0)
[2020-10-05 05:40] LABS: Blood Urea Nitrogen 8 mg/dL (7-17); Calcium 8.2 mg/dL (8.4-10.2); Carbon Dioxide 25 mmol/L (22-32); Chloride 107 mmol/L (98-107); Estimated Glomerular Filt Rate > 60.0 mL/min (>60); Glucose 91 mg/dL (80-110); HEMOLYSIS < 15 (0-50); Sodium 137 mmol/L (137-145)
[2020-10-05 06:01] LABS: Alanine Aminotransferase 141 IU/L (<35); Albumin 2.8 g/dL (3.5-5.0); Albumin Globulin Ratio 1.1 (1.0-2.8); Alkaline Phosphatase 178 U/L (38-126); Aspartate Aminotransferase 68 IU/L (14-36); Bilirubin Total 0.4 mg/dL (0.2-1.3); Bilirubin Unconjugated 0.2 mg/dL (0.0-1.1); Globulin 2.5 g/dL (1.7-4.1); HEMOLYSIS < 15 (0-50); Total Protein 5.3 g/dL (6.3-8.2)
[2020-10-05] MEDS: POTASSIUM CHLORIDE 40 MEQ in SODIUM CHLORIDE 0.9% 500 ML 130 ML IV (06:27)
[2020-10-05] MEDS: SODIUM CHLORIDE 0.9% 1,000 ML 100 ML IV (06:32)
[2020-10-05 07:00] VITALS: BP 142/65; PULSE 59; RESP 17; TEMP 37.2; O2SAT 97
[2020-10-05 08:37] VITALS: BP 142/65; PULSE 59
[2020-10-05] MEDS: AMLODIPINE 5 MG TABLET PO (08:37)
[2020-10-05] MEDS: ESCITALOPRAM 10 MG TABLET PO (08:37)
[2020-10-05] MEDS: lisinopriL 20 MG TABLET 40 MG PO (08:37)
[2020-10-05] MEDS: atenoloL 50 MG TABLET PO ×2 (08:37→21:21)
--- NOTE | 2020-10-05 09:54 | P.PN_ITS ---
Subjective Subjective Date Patient Seen: 10/05/20 Time Patient Seen: 09:54 Interval history: This is a 80-year-old female admitted with cholera bacteremia. She is feeling improved today. Reports 5-6 BMs, color has changed to a light brown mush today. Tolerating a diet. Will discontinue IV fluids today. Denies fever, chills, nausea, vomiting, abdominal pain. End date of IV antibiotics will be 10/17/20 as cultures from 10/03 are negative thus far. Exam Vital Signs (past 8 hours): - 10/05/20 03:00 10/05/20 07:00 10/05/20 08:37 Temperature 98.2 F 98.9 F Pulse Rate 56 L 59 L 59 L Respiratory Rate 14 17 Blood Pressure 152/112 H 142/65 H 142/65 H Pulse Oximetry 98 97 Oxygen Delivery Method Room Air Oxygen Flow Rate 0 Narrative Exam Narrative: GENERAL-thin elderly female, no acute distress HEENT-no scleral icterus, hearing intact, moist mucous membranes NECK-no JVD, trachea midline CVS- regular rate, no peripheral edema RESP-unlabored respiratory effort, no audible wheezing GI-tender to palpation around the umbilicus. No peritonitis. MSK-no cyanosis or clubbing, extremities without deformity SKIN-warm, dry NEURO-alert and oriented, no focal deficits PYSCH-depressed mood Objective Labs Result Diagrams: 10/05/20 05:20 10/05/20 05:20 Labs: Laboratory Results - last 24 hr 10/02/20 10/04/20 10/05/20 05:30 12:55 05:20 WBC 7.7 RBC 3.41 L Hgb 10.0 L Hct 28.9 L MCV 84.9 MCH 29.3 MCHC 34.5 RDW 12.7 Plt Count 263 Sodium Potassium 3.7 Chloride Carbon Dioxide BUN Creatinine Estimated GFR BUN/Creatinine Ratio Glucose Calcium Total Bilirubin Conjugated Bilirubin Unconjugated Bilirubin AST ALT Alkaline Phosphatase Total Protein Albumin Globulin Albumin/Globulin Ratio HCV Quantitation Hcv not detected HCV RNA (PCR) IU log10 TNP Hepatitis C Genotype TNP Ref Test Comments Comment 10/05/20 10/05/20 05:20 05:20 WBC RBC Hgb Hct MCV MCH MCHC RDW Plt Count Sodium 137 Potassium 3.0 L Chloride 107 Carbon Dioxide 25 BUN 8 Creatinine 0.47 L Estimated GFR > 60.0 BUN/Creatinine Ratio 17.0 Glucose 91 Calcium 8.2 L Total Bilirubin 0.4 Conjugated Bilirubin 0.0 Unconjugated Bilirubin 0.2 AST 68 H ALT 141 H Alkaline Phosphatase 178 H Total Protein 5.3 L Albumin 2.8 L Globulin 2.5 Albumin/Globulin Ratio 1.1 HCV Quantitation HCV RNA (PCR) IU log10 Hepatitis C Genotype Ref Test Comments [facility] Medical History Acute pancreatitis Chronic low back pain Coronary artery disease Essential hypertension (12/22/15) Hair loss Hyperlipemia Hypertension Insomnia Low back pain (12/22/15) Osteopenia Osteoporosis (02/04/15) Palpitations Paroxysmal supraventricular tachycardia Pure hypercholesterolemia (12/22/15) Surgical History History of colon surgery Hx of cholecystectomy Hx of hysterectomy (1972) Family History Father No problems noted. Mother No problems noted. Social History household members: significant other Smoking Status: Former smoker alcohol intake: current Assessment & Plan Assessment & Plan narrative: 80W with PMH pancreatitis, hypertension, CAD, hyperlipidemia, vertigo, osteoporosis, chronic low back pain, and anxiety who comes in with significant epigastric pain, nausea, and vomiting, developed significant diarrhea found to have vibrio cholera bacteremia and gastroenteritis. 1. Vibrio cholera bacteremia and gastroenteritis -etiology unclear, no recent travel for patient, she ate shrimp at [employer] restaurant in [place] the day before symptoms started, she had smoked salmon two days before symptoms started -Vibrio cholera confirmed PCR in stool -switched patient to doxycycline and ciprofloxacin, awaiting sensitivities -information sent to state lab for sensitivities. -plan for 2 weeks IV antibiotics after blood cultures clear, if sensitive can be IV doxy only until 10/17/20. -IV fluids provided initially for significant diarrhea to keep euvolemic, will discontinue today. -contact precautions 2. Anemia, acute, stable -mild anemia -no need for transfusion, Hg stable between 10 - 11. -with guaiac positive stools likely from gastroenteritis from cholera -hold lovenox 2. Transaminitis, improving -has elevated bilirubin, AST/ALT, and alk phos. Suspect related to either dehydration or bacteremia. -now downtrending over multiple days -hepatitis serologies showed Igg positive hepatitis A -reflex hepatitis A Igm pending -imaging with CT and MRCP has not shown acute process -stopped trending given improvement in symptoms 3. Hypertension, acute on chronic, uncontrolled, present on admission. -continue atenolol and lisinopril -added amlodipine, and increased lisinopril for continued elevated blood pressure during her hospital stay. 4. Hyperlipidemia, chronic, present on admission. Stable. -held patient's Atorvastatin given transaminitis. Resume on discharge. 5. Anxiety and depression, generalized, not present on admission -continued patient's amitriptyline -ssri started DVT ppx: SCDs Diet: regular diet Code status: DNR, significant other Won Meyer Dispo: pending state lab culture sensitivities and confirmation. If sensitive to doxycycline can discharge on IV doxy only until 10/17/20. Plan is for SNF for continued IV antibiotics. COVID-19 COVID-19 status: Negative
[2020-10-05 11:00] VITALS: BP 157/63; PULSE 59; RESP 16; TEMP 36.7; O2SAT 99
--- NOTE | 2020-10-05 11:11 | PC.NURSE ---
Patient A/O x 4. Up to restroom, reports mushy stool. Denies SOB, fine crackles noted in lower left lobe, 99-100% on RA. HR atul upper 50's to 65. Patient denies lightheadedness, dizziness or pain. K+ infusing in RUE midline @ 130cc/hr. Saline locked after infusion completed. Patient tolerating diet, voiding. Ambulating SBA in the room. Remains on contact precautions. Refuses SCD's. Call light in reach.
[2020-10-05 15:25] VITALS: BP 139/68; PULSE 61; RESP 16; TEMP 36.4; O2SAT 97
[2020-10-05 19:21] VITALS: BP 155/64; PULSE 65; RESP 16; TEMP 37.4; O2SAT 98
[2020-10-05] MEDS: AMITRIPTYLINE 25 MG TABLET 50 MG PO (21:21)
[2020-10-05] MEDS: MELATONIN 3 MG TABLET 6 MG PO (21:21)
--- NOTE | 2020-10-05 22:38 | PC.NURSE ---
Evening shift note: A/Ox4, able to ambulate self to bathroom, continues to have loose stools x 4 for this shift. Tele and fluids discontinued, lungs sounds are diminished with fine crackles in the LLL, pt denies SOB, 99-100% on RA. Midline is saline locked, remains on contact precautions, refuses SDC's, bed low and locked, call light within reach, will continue to monitor. Patient A/O x 4. Up to restroom, reports mushy stool. Denies SOB, fine crackles noted in lower left lobe, 99-100% on RA. HR atul upper 50's to 65. Patient denies lightheadedness, dizziness or pain. K+ infusing in RUE midline @ 130cc/hr. Saline locked after infusion completed. Patient tolerating diet, voiding. Ambulating SBA in the room. Remains on contact precautions. Refuses SCD's. Call light in reach.
[2020-10-06 00:13] LABS: Hepatitis A Antibody IgM Negative (Negative)
[2020-10-06] MEDS: CIPROFLOXACIN 400 MG/200 ML PIGGYBACK 200 MG IV ×2 (01:52→13:34)
[2020-10-06 02:07] VITALS: BP 165/63; PULSE 63; RESP 16; TEMP 37.3; O2SAT 97
[2020-10-06] MEDS: DOXYCYCLINE 100 MG in SODIUM CHLORIDE 0.9% 100 ML IV ×2 (03:26→14:42)
[2020-10-06 08:00] VITALS: BP 167/60; PULSE 60; RESP 17; TEMP 36.6; O2SAT 99
[2020-10-06] MEDS: lisinopriL 20 MG TABLET 40 MG PO (09:00)
[2020-10-06] MEDS: ESCITALOPRAM 10 MG TABLET PO (09:00)
[2020-10-06] MEDS: atenoloL 50 MG TABLET PO ×2 (09:00→20:41)
[2020-10-06 12:00] VITALS: BP 149/55; PULSE 60; RESP 17; TEMP 36.8; O2SAT 97
--- NOTE | 2020-10-06 13:24 | CM.DPC ---
Addendum entered by Fanny Botello 10/06/20 13:37: Received call from November at [facility], she reports that they can accept this patient with IV abx at time of d/c. Initially, it was reported that [facility] could not take due to abx cost but November reports that administration at [facility] has agreed to accept regardless of IV abx she discharges on. KJS Original Note: DCP/continued: Reviewed chart. Per provider in AM rounds, awaiting cultures to determine if patient will need IV or po abx and which ones? No d/c anticipated for today. [employer]POWER DEVELOPMENT SPECIALIST spoke with Julia at [facility] and faxed updated progress note. Per Julia at [facility] she believes that they can accept but needs to check with her administration re: cost of antibiotics? If IV abx not needed patient will d/c home. P: Pending. SANDOR Freeman
--- NOTE | 2020-10-06 13:35 | P.PN_ITS ---
Subjective Subjective Date Patient Seen: 10/06/20 Interval history: The patient is a 80-year-old female hospitalized with [place] bacteremia. She reports today that her appetite has improved somewhat. She is able to eat her lunch. In addition the patient reports she is now having formed stools although small volume. She denies any abdominal pain, no diarrhea, and no fever. Exam Vital Signs (past 8 hours): - 10/06/20 08:00 10/06/20 12:00 Temperature 97.8 F 98.3 F Pulse Rate 60 60 Respiratory Rate 17 17 Blood Pressure 167/60 H 149/55 H Pulse Oximetry 99 97 Oxygen Delivery Method Room Air Oxygen Flow Rate 0 Narrative Exam Narrative: Pleasant elderly female lying in bed in no obvious distress Lungs: Clear to auscultation Cardiac exam: Regular rate and rhythm normal S1-S2 Abdomen: Soft and nontender Extremities: No edema Objective Labs Result Diagrams: 10/05/20 05:20 10/05/20 05:20 Labs: Laboratory Results - last 24 hr 10/03/20 18:52 Hepatitis A IgM Ab Negative [facility] Medical History Acute pancreatitis Chronic low back pain Coronary artery disease Essential hypertension (12/22/15) Hair loss Hyperlipemia Hypertension Insomnia Low back pain (12/22/15) Osteopenia Osteoporosis (02/04/15) Palpitations Paroxysmal supraventricular tachycardia Pure hypercholesterolemia (12/22/15) Surgical History History of colon surgery Hx of cholecystectomy Hx of hysterectomy (1972) Family History Father No problems noted. Mother No problems noted. Social History household members: significant other Smoking Status: Former smoker alcohol intake: current Assessment & Plan Assessment & Plan narrative: 80W with PMH pancreatitis, hypertension, CAD, hyperlipidemia, vertigo, osteoporosis, chronic low back pain, and anxiety who comes in with significant epigastric pain, nausea, and vomiting, developed significant diarrhea found to have vibrio cholera bacteremia and gastroenteritis. 1. Vibrio cholera bacteremia and gastroenteritis -etiology unclear, no recent travel for patient, she ate shrimp at [place] in [place] the day before symptoms started, she had smoked salmon two days before symptoms started -Vibrio cholera confirmed PCR in stool -switched patient to doxycycline and ciprofloxacin, awaiting sensitivities -information sent to state lab for sensitivities. -plan for 2 weeks IV antibiotics after blood cultures clear, if sensitive can be IV doxy only until 10/17/20. -IV fluids provided initially for significant diarrhea to keep euvolemic, will discontinue today. -contact precautions -discussed with the lab, continuing to wait on final culture and sensitivity results 2. Anemia, acute, stable -mild anemia -no need for transfusion, Hg stable between 10 - 11. -with guaiac positive stools likely from gastroenteritis from cholera -hold lovenox -will continue to monitor 2. Transaminitis, improving -has elevated bilirubin, AST/ALT, and alk phos. Suspect related to either dehydration or bacteremia. -now downtrending over multiple days -hepatitis serologies showed Igg positive hepatitis A -reflex hepatitis A Igm pending -imaging with CT and MRCP has not shown acute process -stopped trending given improvement in symptoms 3. Hypertension, acute on chronic, uncontrolled, present on admission. -continue atenolol and lisinopril -added amlodipine, and increased lisinopril for continued elevated blood pressure during her hospital stay. 4. Hyperlipidemia, chronic, present on admission. Stable. -held patient's Atorvastatin given transaminitis. Resume on discharge. 5. Anxiety and depression, generalized, not present on admission -continued patient's amitriptyline, SSRI started 6. Hypokalemia will replace DVT ppx: SCDs Diet: regular diet Code status: DNR, significant other Won Meyer Dispo: pending state lab culture sensitivities and confirmation. If sensitive to doxycycline can discharge on IV doxy only until 10/17/20. Plan is for SNF for continued IV antibiotics.
[2020-10-06 16:00] VITALS: BP 162/75; PULSE 67; RESP 18; TEMP 36.6; O2SAT 98
[2020-10-06 20:23] VITALS: BP 147/60; PULSE 68; RESP 17; O2SAT 99
[2020-10-06] MEDS: AMITRIPTYLINE 25 MG TABLET 50 MG PO (20:41)
[2020-10-06] MEDS: MELATONIN 3 MG TABLET 6 MG PO (20:41)
[2020-10-07] VITALS: BP 145/60; PULSE 60; RESP 18; TEMP 36.3; O2SAT 96
[2020-10-07] MEDS: CIPROFLOXACIN 400 MG/200 ML PIGGYBACK 200 MG IV (01:28)
[2020-10-07] MEDS: DOXYCYCLINE 100 MG in SODIUM CHLORIDE 0.9% 100 ML IV (02:35)
[2020-10-07 04:00] VITALS: BP 129/57; PULSE 64; RESP 18; TEMP 36.7; O2SAT 97
[2020-10-07 05:57] LABS: Add Manual Diff / Slide Review NO; Basophils Absolute Auto 0 /uL (0-100); Basophils Percent Auto 0.3 % (0-2); Eosinophils Absolute Auto 600 /uL (0-450); Eosinophils Percent Auto 7.1 % (2-4); Hematocrit 29.7 % (36-46); Lymphocytes Absolute Auto 1800 /uL (1100-4500); Mean Corpuscular HGB Conc 33.9 % (30-36); Mean Corpuscular Hemoglobin 29.2 PG (26-34); Mean Corpuscular Volume 86.2 fL (80-100); Monocytes Absolute Auto 800 /uL (0-900); Monocytes Percent Auto 8.5 % (3-14); Neutrophils Absolute Auto 5700 /uL (1500-7000); Neutrophils Percent Auto 64.1 % (50-75); Platelet Count 297 X10^3/uL (150-400); Red Blood Cell Count 3.44 X10^6/uL (4.0-5.2); Red Cell Distribution Width 12.9 % (11.6-14.8); White Blood Cell Count 8.8 X10^3/uL (4.5-11.0)
[2020-10-07 06:07] LABS: Blood Urea Nitrogen 11 mg/dL (7-17); Calcium 8.6 mg/dL (8.4-10.2); Carbon Dioxide 27 mmol/L (22-32); Chloride 105 mmol/L (98-107); Estimated Glomerular Filt Rate > 60.0 mL/min (>60); Glucose 102 mg/dL (80-110); HEMOLYSIS < 15 (0-50); Potassium 3.7 mmol/L (3.4-5.1); Sodium 136 mmol/L (137-145)
[2020-10-07 08:00] VITALS: BP 139/55; PULSE 60; RESP 17; TEMP 36.7; O2SAT 99
[2020-10-07] MEDS: lisinopriL 20 MG TABLET 40 MG PO (10:11)
[2020-10-07] MEDS: atenoloL 50 MG TABLET PO (10:11)
[2020-10-07] MEDS: ESCITALOPRAM 10 MG TABLET PO (10:11)
--- NOTE | 2020-10-07 10:36 | PC.NURSE ---
Assess- Patient is going to be discharged home today on oral antibiotics and will go home. She has been having more soft stools and not liquid. Up ad eduardo, denies pain.
[2020-10-07 12:00] VITALS: BP 153/62; PULSE 60; RESP 18; TEMP 37.1; O2SAT 99
--- NOTE | 2020-10-09 10:48 | P.DS_ITS ---
History of Present Illness History of Present Illness Date Patient Seen: 10/09/20 Chief complaint: terrible abdominal pain Narrative: Patient is a 80-year-old female Joanne Turner who presented to the ED and evaluated for a chief complaint of epigastric abdominal pain and nausea and vomiting. At that time the patient had a relatively benign workup except for leukocytosis (WBC 15 with left shift, AST 45, ALT 22, lipase 46). ABD CT scan was concerning for gastritis. Patient was sent home with nausea control and to return per precautions. She returned to the ED for continued/worsening epigastric abdominal pain and vomiting despite the Zofran. She continues to be afebrile. She states that is the same pain that she had at the beginning of the night only worse. Upon admit to the floor patient states pain is unchanged from ED, and that her pain usually improves after vomiting, she notes that her pain is constant, does not worsen with deep breathing does not vary in intensity, and only mildly improved with pain medication in ED. Her nausea has returned patient is hunched over whimpering in her bed. She states that she has not eaten or had a BM in 24 hours and has been vomiting intermittently for 24 hours and is exhausted, and has not slept. Patient reports that she had acute pancreatitis approximately 10 years ago and this is the same presentation. She continues to deny any diarrhea, urinary symptoms, fever, body aches, chills, rash, jaundice, hematemesis, melena. Patient also denies any history GI bleeding. She states that vomiting does improve her symptoms slightly. Patient has a history of acute pancreatitis, hypertension, coronary artery disease, hyperlipidemia, vertigo, osteoporosis, chronic low back pain, and anxiety. Patient's admit vital signs temp 98.7?, BP 230/98, HR 86, RR 22, O2 sat 97% on room air. Patient's labs WBC increased to 17.6 with a left shift neut 91.8, Na 135, glucose 133, BUN creatinine ratio 23.2 both an increase in AST 69 and ALT 36, lipase increased 854, lactate 1.9. EKG: Sinus rhythm, Ventricular rate 84, Nonspecific ST T wave changes, predominantly unchanged from previous EKG CTA:No bowel obstruction or findings of bowel ischemia. Large periampullary duodenal diverticulum with mild dilation of the dorsal pancreatic duct. Dilation of the common bile duct may be secondary to cholecystectomy or intermittent obstruction by duodenal diverticulum. This constellation of findings can be seen with lemmel syndrome which can present clinically with symptoms of intermittent cholangitis and upper abdominal pain. This may be further evaluated with MRCP if clinically indicated. Right hepatic nodules likely a hemangioma but cannot be definitively classified on the single phase contrast scan. Hiatal hernia. Patient be admitted for acute epigastric abdominal pain with leukocytosis and vomiting rule out acute pancreatitis vs. Acute cholangitis. Discharge Providers Provider Date of admission: 10/01/20 04:46 Discharge Date: 10/07/20 Primary care physician: Rashawn Beckman MD Consults: 10/01/20 04:38 Consult to General Surgery Stat Comment: Consulting Provider: Christopher Whitfield Reason for consultation: Abdominal pain, pancreatitis Has provider been notified: Yes 10/01/20 04:56 Consult to Physician Urgent Comment: Consulting Provider: Christopher Whitfield Reason for consultation: Upper epigastric abdominal pain R/O pancreatitis Has provider been notified: Yes 10/01/20 05:50 Consult to Dietitian, Adult Routine Comment: Reason For Exam: unintentional weight loss Discharge provider: Jessica Engel MD Summary Hospital Course Discharge Diagnosis: 1. Vibrio cholera bacteremia 2. Gastroenteritis 3. Transaminitis 4. Hypertension 5. Hyperlipidemia 6. Anxiety and depression Hospital Course: Admitted to the hospital for abdominal pain. She had a CT of the abdomen which showed gastroenteritis and possible duodenal diverticulum. Her initial lipase was elevated at 800. An MRCP was negative. The patient had blood cultures which were positive for Gram-negative rods. They were ultimately identified as vibrio cholera. The patient developed diffuse diarrhea. This was watery diarrhea. She had some associated nausea. Her symptoms of nausea diarrhea and abdominal discomfort quickly resolved. The vibrio cholera was sent out to the state lab for identification. This was found to be sensitive to both doxycycline and ciprofloxacin. They were unable to check sensitivities to this organism. The patient was able to make slow but steady progress. She had improvement of her LFTs. The patient's diet was advanced. She was switched to oral antibiotics and deemed appropriate for discharge home. Patient was referred to the [facility], Dr. ramsey Gonzalez for an outpatient evaluation. She will continue both ciprofloxacin and doxycycline for a total of 14 days. Her antibiotic course should be completed on October 17. Status at Discharge Cognitive/behavioral status at discharge: oriented Functional status at discharge: independent ambulation Overall status at discharge: patient is back to baseline Time Spent with Patient Time spent: Less than 30 minutes Exam Vital Signs (past 8 hours): Oxygen Delivery Method Room Air Oxygen Flow Rate 0 Narrative Exam Narrative: Pleasant female resting comfortably in no obvious distress Lungs: Clear to auscultation Cardiac exam: Regular rate and rhythm normal S1-S2 Abdomen: Soft, nontender, nondistended, no appreciable hepatosplenomegaly Extremities: No edema Objective Labs Result Diagrams: 10/07/20 05:35 10/07/20 05:35 [facility] Medical History Acute pancreatitis Chronic low back pain Coronary artery disease Essential hypertension (12/22/15) Hair loss Hyperlipemia Hypertension Insomnia Low back pain (12/22/15) Osteopenia Osteoporosis (02/04/15) Palpitations Paroxysmal supraventricular tachycardia Pure hypercholesterolemia (12/22/15) Surgical History History of colon surgery Hx of cholecystectomy Hx of hysterectomy (1972) Family History Father No problems noted. Mother No problems noted. Social History household members: significant other Smoking Status: Former smoker alcohol intake: current Discharge Assessment & Plan Assessment and Plan Assessment: 1. Febrile [place] gastroenteritis 2. Transaminitis 3. Hypertension 4. Hyperlipidemia Plan of Treatment: Antibiotics as prescribed Follow-up with Dr. Gisela Melgoza [facility] scheduled Discharge Plan Discharge Plan Patient Disposition: Home Discharge orders & Medications Prescriptions: New doxycycline hyclate 100 mg capsule 100 mg PO BID 10 Days Qty: 20 RF: 0 ciprofloxacin HCl 500 mg tablet 500 mg PO BID Qty: 20 RF: 0 Continued amitriptyline 50 mg tablet 50 mg PO QPM Qty: 90 RF: 2 lisinopril 20 mg tablet 20 mg PO DAILY Qty: 90 RF: 2 atorvastatin [Lipitor] 40 mg tablet 40 mg PO BEDTIME Qty: 90 RF: 1 atenolol 50 mg tablet 50 mg PO BID Qty: 180 RF: 3 tramadol 50 mg tablet 50 mg PO Q6HP PRN (Reason: Pain) Qty: 60 RF: 4 Follow up/Referrals: Rashawn Beckman MD [Primary Care Provider] - Shannan Higgins MD [Non-Staff] - (follow up from hospitalization for Vibrio Cholera Scheduled appointment on October 08, 2020) Discharge Health Status Multidrug resistant organism: No MDRO Diet/Activity/Treatments Diet: Low-fat and Low-sodium Diet comment: doxycyline taken w/food, sit up for 1 hour after, drink 1 glass h20 w/med Activity: as tolerated Skin/Wound/Dressing Care Report to your healthcare provider any signs of infection, such as:: chills, fever Visit Report/Discharge Packet Instructions: Cholera, Doxycycline, Ciprofloxacin Discharge Data Primary Care Provider: Rashawn Beckman
== END 2020-10-07 13:09 | disposition home or self-care (01) | DRG 372 ==
LOC: ED 03:51 → AC 09:22
PROVIDERS: Internal Medicine; Admitting Provider Nurse Practitioner Family; Emergency Provider Emergency Medicine; PCP Student in an Organized Health Care Education/Training Program; Visit Provider Nurse Practitioner Family
DX: A04.8 Other specified bacterial intestinal infections (principal); R78.81 Bacteremia; R74.01 Elevation of levels of liver transaminase levels; B96.89 Other specified bacterial agents as the cause of diseases classified elsewhere; E80.6 Other disorders of bilirubin metabolism; I25.10 Atherosclerotic heart disease of native coronary artery without angina pectoris; I10 Essential (primary) hypertension; E78.5 Hyperlipidemia, unspecified; E86.1 Hypovolemia; F41.9 Anxiety disorder, unspecified; Z20.822 Contact with and (suspected) exposure to COVID-19; Z66 Do not resuscitate
CPT/HCPCS: 36415; 36569; 36592; 74174; 74177; 74181; 80048; 80053; 80061; 80076; 81003; 82150; 82310; 82550; 82553; 82962; 82977; 83605; 83615; 83690; 83735; 84132; 84484; 85025; 85027; 85610; 85730; 86140; 86704; 86706; 86708; 86709; 87040; 87077; 87150; 87186; 87205; 87340; 87493; 87507; 87522; 87635; 93005; 93010; 94762; 96361; 96374; 96375; 96376; 99233; 99284; C9803; C9113; J0744; J1170; J1335; J1642; J1650; J2270; J2405; J2543; J2765; J3475; J3480; Q9967

== ENCOUNTER → 2020-11-06 13:20 | Outpatient (CLI) | payer MEDICARE, OTHER, SELFPAY ==
[2020-10-01 05:45] VITALS: BMI 20.2
--- NOTE | 2020-11-06 | DI.US.S_ITS ---
PROCEDURE: US ABDOMEN LIMITED INDICATIONS: Bacteremia TECHNIQUE: Real-time focused scanning was performed of the abdomen, with image documentation. COMPARISON: [facility], CT, CT ANGIO ABDOMEN PELVIS, 10/01/2020, 2:55. FINDINGS: The liver is normal in size and demonstrates a known hyperechoic homogeneous nonvascular lesion within the right posterior lobe of the liver that measures up to 1.3 cm, which is consistent with the known hemangioma. Status post cholecystectomy. There is no biliary dilatation, the common bile duct measures 7 mm. No significant pancreatic abnormality is seen on these images. No pancreatic ductal dilatation can be seen. Dedicated scanning is performed within the area of the right upper quadrant lump. At this site, there is a nonvascular subcutaneous focus that demonstrates echogenicity similar to the normal surrounding fat and measures 1.3 x 1.5 x 0.6 cm. IMPRESSION: No significant abnormality is seen to explain the patient's presenting history. No suspicious masses are seen. No abscess collection can be seen. Incidental note is made of: Liver hemangioma Cholecystectomy Right upper quadrant subcutaneous lipoma Dictated by: David Barron M.D. on 11/06/2020 at 15:43 Approved by: David Barron M.D. on 11/06/2020 at 15:45
== END ==
PROVIDERS: PCP Student in an Organized Health Care Education/Training Program
DX: R78.81 Bacteremia (principal); R74.01 Elevation of levels of liver transaminase levels; D18.09 Hemangioma of other sites; D17.1 Benign lipomatous neoplasm of skin and subcutaneous tissue of trunk; Z90.49 Acquired absence of other specified parts of digestive tract
CPT/HCPCS: 76705

== ENCOUNTER → 2022-01-12 09:47 | Outpatient (CLI) | payer MEDICARE, OTHER, SELFPAY ==
[2020-10-01 05:45] VITALS: BMI 20.2
[2022-01-12 10:19] LABS: Add Manual Diff / Slide Review NO; Basophils Absolute Auto 0 /uL (0-100); Basophils Percent Auto 0.3 % (0-2); Eosinophils Absolute Auto 200 /uL (0-450); Eosinophils Percent Auto 2.9 % (2-4); Hematocrit 33.1 % (36-46); Hemoglobin 10.7 g/dL (12.0-16.0); Lymphocytes Absolute Auto 1500 /uL (1100-4500); Lymphocytes Percent Auto 23.2 % (25-40); Mean Corpuscular HGB Conc 32.4 % (30-36); Mean Corpuscular Hemoglobin 25.3 PG (26-34); Mean Corpuscular Volume 77.9 fL (80-100); Monocytes Absolute Auto 600 /uL (0-900); Monocytes Percent Auto 9.1 % (3-14); Neutrophils Absolute Auto 4200 /uL (1500-7000); Neutrophils Percent Auto 64.5 % (50-75); Platelet Count 393 X10^3/uL (150-400); Red Blood Cell Count 4.25 X10^6/uL (4.0-5.2); Red Cell Distribution Width 15.1 % (11.6-14.8); White Blood Cell Count 6.5 X10^3/uL (4.5-11.0)
[2022-01-12 12:56] LABS: Alanine Aminotransferase 18 IU/L (<35); Albumin 4.2 g/dL (3.5-5.0); Albumin Globulin Ratio 1.6 (1.0-2.8); Alkaline Phosphatase 84 U/L (38-126); Aspartate Aminotransferase 28 IU/L (14-36); BUN Creatinine Ratio 21.9 (6-22); Bilirubin Total 0.3 mg/dL (0.2-1.3); Blood Urea Nitrogen 16 mg/dL (7-17); Calcium 9.5 mg/dL (8.4-10.2); Carbon Dioxide 29 mmol/L (22-32); Chloride 103 mmol/L (98-107); Estimated Glomerular Filt Rate > 60 mL/min (>60); Globulin 2.6 g/dL (1.7-4.1); Glucose 91 mg/dL (80-110); HEMOLYSIS < 15 (0-50); Potassium 4.9 mmol/L (3.4-5.1); Sodium 138 mmol/L (137-145); Total Protein 6.8 g/dL (6.3-8.2)
[2022-01-12 13:28] LABS: TSH w/ Reflex to FT4 1.47 uIU/mL (0.47-4.68)
== END ==
PROVIDERS: PCP Student in an Organized Health Care Education/Training Program; Referring Provider Student in an Organized Health Care Education/Training Program; Visit Provider Student in an Organized Health Care Education/Training Program
DX: I10 Essential (primary) hypertension (principal); R06.09 Other forms of dyspnea
CPT/HCPCS: 36415; 80053; 84443; 85025

== ENCOUNTER → 2022-01-13 11:54 | Outpatient (CLI) | payer MEDICARE, OTHER, SELFPAY ==
[2020-10-01 05:45] VITALS: BMI 20.2
== END ==
PROVIDERS: PCP Student in an Organized Health Care Education/Training Program; Referring Provider Student in an Organized Health Care Education/Training Program; Visit Provider Student in an Organized Health Care Education/Training Program
DX: Z78.0 Asymptomatic menopausal state (principal); Z13.820 Encounter for screening for osteoporosis; M06.9 Rheumatoid arthritis, unspecified; M81.8 Other osteoporosis without current pathological fracture; Z79.83 Long term (current) use of bisphosphonates; Z90.710 Acquired absence of both cervix and uterus
CPT/HCPCS: 77080

== ENCOUNTER → 2022-03-18 13:34 | Outpatient (CLI) | payer MEDICARE, OTHER, SELFPAY ==
[2020-10-01 05:45] VITALS: BMI 20.2
--- NOTE | 2022-03-18 13:36 | DI.RAD.S_ITS ---
PROCEDURE: XR SHOULDER RT MIN 2V INDICATIONS: Upper arm injury w/ persistent pain TECHNIQUE: 4 views of the shoulder were acquired. COMPARISON: None. FINDINGS: Bones: No fractures or dislocations. No suspicious bony lesions. Visualized ribs appear intact. Soft tissues: No suspicious soft tissue calcifications. IMPRESSION: Unremarkable right shoulder radiographs Approved by: Emanuel Coley M.D. on 03/18/2022 at 18:00
--- NOTE | 2022-03-18 13:36 | DI.RAD.S_ITS ---
PROCEDURE: XR HUMERUS RT 2V INDICATIONS: Upper arm injury w/ persistent pain TECHNIQUE: 2 views of the humerus were acquired. COMPARISON: None. FINDINGS: Bones: No fractures or dislocations. No suspicious bony lesions. Soft tissues: No suspicious soft tissue calcifications. IMPRESSION: Unremarkable right humeral radiographs Approved by: Emanuel Coley M.D. on 03/18/2022 at 17:47
== END ==
PROVIDERS: PCP Student in an Organized Health Care Education/Training Program; Referring Provider Student in an Organized Health Care Education/Training Program; Visit Provider Student in an Organized Health Care Education/Training Program
DX: S46.011A Strain of muscle(s) and tendon(s) of the rotator cuff of right shoulder, initial encounter (principal); M77.10 Lateral epicondylitis, unspecified elbow; X58.XXXA Exposure to other specified factors, initial encounter
CPT/HCPCS: 73030; 73060

== ENCOUNTER → 2022-08-18 08:21 | Outpatient (CLI) | payer MEDICARE, OTHER, SELFPAY ==
[2020-10-01 05:45] VITALS: BMI 20.2
[2022-08-18 09:22] LABS: BUN Creatinine Ratio 23.9 (6-22); Blood Urea Nitrogen 16 mg/dL (7-17); Calcium 9.3 mg/dL (8.4-10.2); Carbon Dioxide 31 mmol/L (22-32); Chloride 102 mmol/L (98-107); Cholesterol 181 mg/dL (140-199); Estimated Glomerular Filt Rate > 60 mL/min (>60); Glucose 107 mg/dL (80-110); HDL Cholesterol 41 mg/dL (40-60); HEMOLYSIS < 15 (0-50); LDL Cholesterol Calculated 101 mg/dL (<100); Potassium 4.2 mmol/L (3.4-5.1); Sodium 141 mmol/L (137-145); Triglycerides 195 mg/dL (35-150)
[2022-08-18 09:55] LABS: TSH w/ Reflex to FT4 3.56 uIU/mL (0.47-4.68)
== END ==
PROVIDERS: PCP Student in an Organized Health Care Education/Training Program; Referring Provider Student in an Organized Health Care Education/Training Program; Visit Provider Student in an Organized Health Care Education/Training Program
DX: E78.00 Pure hypercholesterolemia, unspecified (principal); R63.5 Abnormal weight gain; I10 Essential (primary) hypertension
CPT/HCPCS: 36415; 80048; 80061; 84443

== ENCOUNTER → 2023-03-03 09:32 | Outpatient (CLI) | payer MEDICARE, OTHER, SELFPAY ==
[2020-10-01 05:45] VITALS: BMI 20.2
[2023-03-03 10:31] LABS: Appearance Urine UA SL CLOUDY; Bilirubin Urine UA NEGATIVE (NEGATIVE); Color Urine UA YELLOW; Glucose Urine UA NEGATIVE (Negative); Ketones Urine UA NEGATIVE (NEGATIVE); Leukocyte Esterase Urine UA 3+ (NEGATIVE); Nitrite Urine UA NEGATIVE (Negative); Occult Blood Urine UA TRACE-INTACT (Negative); Protein Urine UA NEGATIVE (Negative); Specific Gravity Urine UA <=1.005 (1.000-1.035); Urobilinogen Urine UA 0.2 E.U./dL (0.2)
[2023-03-03 11:05] LABS: Bacteria Urine Many (>30); Culture Indicated Urine Specimen Cultured; RBC Urine 1-5/HPF (0-5/HPF); Squamous Epithelial Cell Urine 0-1 /HPF (0-5/HPF); WBC Urine 10-30/HPF (0-5/HPF); pH Urine UA 6.5 (4.5-8.0)
== END ==
PROVIDERS: PCP Student in an Organized Health Care Education/Training Program; Referring Provider Family Medicine; Visit Provider Family Medicine
DX: R30.0 Dysuria (principal)
CPT/HCPCS: 81001; 87077; 87086; 87186

== ENCOUNTER → 2023-03-18 08:22 | Outpatient (CLI) | payer MEDICARE, OTHER, SELFPAY ==
[2020-10-01 05:45] VITALS: BMI 20.2
[2023-03-18 09:18] LABS: Cholesterol 181 mg/dL (140-199); HDL Cholesterol 41 mg/dL (40-60); LDL Cholesterol Calculated 88 mg/dL (<100); Triglycerides 259 mg/dL (35-150)
[2023-03-18 10:33] LABS: Creatinine Urine Random 95.7 mg/dL
[2023-03-18 10:37] LABS: Microalbumi Creatinin Ratio Ur 10.4 ug/mg CR (<30)
== END ==
PROVIDERS: PCP Family Medicine; Referring Provider Family Medicine; Visit Provider Family Medicine
DX: I10 Essential (primary) hypertension (principal); Z00.00 Encounter for general adult medical examination without abnormal findings; R06.09 Other forms of dyspnea; M81.0 Age-related osteoporosis without current pathological fracture; E78.00 Pure hypercholesterolemia, unspecified
CPT/HCPCS: 36415; 80061; 82043; 82570

== ENCOUNTER → 2024-07-03 09:14 | Outpatient (CLI) | payer MEDICARE, OTHER, SELFPAY ==
[2023-05-11 18:49] VITALS: BMI 20.2
[2024-07-03 10:06] LABS: Hemoglobin 13.3 g/dL (12.0-16.0); Mean Corpuscular HGB Conc 33.3 % (30-36); Mean Corpuscular Hemoglobin 29.7 PG (26-34); Mean Corpuscular Volume 89.1 fL (80-100); Platelet Count 352 X10^3/uL (150-400); Red Blood Cell Count 4.49 X10^6/uL (4.0-5.2); Red Cell Distribution Width 12.3 % (11.6-14.8); White Blood Cell Count 6.2 X10^3/uL (4.5-11.0)
[2024-07-03 10:38] LABS: BUN Creatinine Ratio 17.3 (6-22); Blood Urea Nitrogen 14 mg/dL (7-17); Calcium 9.7 mg/dL (8.4-10.2); Carbon Dioxide 30 mmol/L (22-32); Chloride 104 mmol/L (98-107); Cholesterol 171 mg/dL (140-199); Estimated Glomerular Filt Rate > 60 mL/min (>60); Glucose 109 mg/dL (80-110); HDL Cholesterol 42 mg/dL (40-60); HEMOLYSIS < 15 (0-50); LDL Cholesterol Calculated 85 mg/dL (<100); Potassium 4.7 mmol/L (3.4-5.1); Sodium 138 mmol/L (137-145); Triglycerides 221 mg/dL (35-150)
[2024-07-03 10:41] LABS: Creatinine Urine Random 88.11 mg/dL
[2024-07-03 11:00] LABS: Microalbumin Urine Random < 0.6 mg/dL (0-1.6)
== END ==
PROVIDERS: PCP Family Medicine; Referring Provider Family Medicine; Visit Provider Family Medicine
DX: I10 Essential (primary) hypertension (principal); E78.00 Pure hypercholesterolemia, unspecified
CPT/HCPCS: 36415; 80048; 80061; 82043; 82570; 85027

== ENCOUNTER → 2025-05-03 09:56 | Outpatient (CLI) | payer MEDICARE, OTHER, SELFPAY ==
[2023-05-11 18:49] VITALS: BMI 20.2
--- NOTE | 2025-05-03 09:58 | DI.RAD.S_ITS ---
PROCEDURE: XR THORACIC SPINE 3V INDICATIONS: BACK PAIN TECHNIQUE: 3 views of the thoracic spine were acquired. COMPARISON: None. FINDINGS: Bones: No fractures or dislocations. No suspicious bony lesions. 12 pairs of ribs are noted, and appear intact where visualized. Mild degenerative changes with osteophytosis. Decreased osseous mineralization. Minimal levocurvature. Soft tissues: No paravertebral stripe thickening. IMPRESSION: Mild degenerative changes. Decreased osseous mineralization. Dictated by: Deshawn Preston M.D. on 05/03/2025 at 17:00 Approved by: Deshawn Preston M.D. on 05/03/2025 at 17:01
--- NOTE | 2025-05-03 09:58 | DI.RAD.S_ITS ---
PROCEDURE: XR LUMBAR SPINE 2-3V INDICATIONS: BACK PAIN TECHNIQUE: 3 views of the lumbar spine were acquired. COMPARISON: None. FINDINGS: Bones: 5 [id number] vertebrae are present. Dextroscoliotic curvature. Mild anterolisthesis of L4 on L5. Decreased osseous mineralization. No vertebral body compression fractures. No suspicious bony lesions. There is multilevel facet arthropathy, worse at L4-5 and L5-S1. Mild multilevel disc height loss with degenerative endplate changes and spurring is present. Soft tissues: Overlying bowel gas pattern is normal. No suspicious soft tissue calcifications. IMPRESSION: Multilevel degenerative changes of the lumbar spine with dextroscoliotic curvature. Dictated by: Deshawn Preston M.D. on 05/03/2025 at 17:01 Approved by: Deshawn Preston M.D. on 05/03/2025 at 17:02
== END ==
PROVIDERS: PCP Family Medicine; Referring Provider Family Medicine; Visit Provider Family Medicine
DX: M47.816 Spondylosis without myelopathy or radiculopathy, lumbar region (principal); M47.817 Spondylosis without myelopathy or radiculopathy, lumbosacral region; M43.16 Spondylolisthesis, lumbar region; M25.78 Osteophyte, vertebrae; M54.9 Dorsalgia, unspecified
CPT/HCPCS: 72070; 72100